=== PATIENT | female | born 1940 | race Caucasian/White ===

== ENCOUNTER 2017-10-06 11:10 | Inpatient (IN) | payer MEDICARE, SELFPAY ==
[2017-10-06] VITALS (7 sets, daily range): BP systolic 101–148; BP diastolic 54–75; PULSE 71–117; RESP 16–18; TEMP 36.1–37.1; O2SAT 95–99; BMI 20.3; BMI 24.6
--- NOTE | 2017-10-06 11:25 | CT_ITS ---
STUDY: CT BRAIN WITHOUT CONTRAST REASON FOR EXAM: Female, 77 years old. Headaches. History of schizophrenia. RADIATION DOSAGE (If Supplied By Facility): CTDIvol = ( 44.99 ) mGy, DLP = ( 779.24 ) mGycm TECHNIQUE: Transaxial CT imaging of the brain was performed without administration of intravenous contrast material. Individualized dose optimization techniques were used for this CT. COMPARISON: None. FINDINGS: Normal soft tissue structures. Normal calvarium. There is mild cerebral atrophy with widening of the extra-axial spaces and ventricular dilatation. Normal white matter tracts of the cerebral hemispheres. Normal basal ganglia and thalami. Normal brainstem. Normal cerebellum. There is no intracranial hemorrhage. There are no findings of an acute ischemic infarction. Atherosclerotic calcification of the cavernous portions of the internal carotid arteries bilaterally. Normal visualized paranasal sinuses. CT/Brain/Head without Contrast IMPRESSION: Chronic involutional changes of the brain. Electronically Signed: Mike Loza MD at 13:42 EDT Tel [phone], Service support ,
--- NOTE | 2017-10-06 11:25 | EKG12_ITS ---
Test Reason : Blood Pressure : / mmHG Vent. Rate : 112 BPM Atrial Rate : 112 BPM P-R Int : 140 ms QRS Dur : 078 ms QT Int : 310 ms P-R-T Axes : 044 -33 -04 degrees QTc Int : 423 ms Sinus tachycardia Left axis deviation Inferior infarct , age undetermined Abnormal ECG Confirmed by JONNY LEMUS ([id number]), fashion editor LYDIA CASSIDY ([id number]) on 10/09/2017 2:42:03 PM Referred By: STEPHAN Confirmed By:JONNY LEMUS
--- NOTE | 2017-10-06 11:27 | ED.VISSUMM ---
- ER Visit Summary Date of Service: 10/06/17 Chief Complaint: Weakness, confusion History of Present Illness: The patient is a 77 F who is been having weakness and confusion for the past 4 days. Family has been noting that she has been going downhill for the past couple of days. It feels like she has been getting more confused. She states that she feels weak and has been having trouble ambulating around the house. She has been having a decreased p.o. intake. She denies having any pain but does admit to some heartburn. She has been having a headache but admits to a history of migraine headaches. She has taken nothing for this at home. She does have some dysuria and a mild cough. No fevers at home. Physical Examination: Vital signs reviewed. HEENT exam unremarkable. Heart is tach and regular rhythm without murmurs. Lungs are clear to auscultation. Abdomen is soft and nontender. Extremities reveal no edema. Skin exam normal. Neurologic exam weakness in lower extremities bilaterally. Test Results: Sinus rhythm with a rate of 112. Chest x-ray and CAT scan revealed no acute findings. White blood cell count 15.1, sodium 130, potassium 3.2, chloride 93, lactate 1.3. Urinalysis does reveal 10-25 white blood cells with positive nitrites Emergency Department Course and Treatment: Patient was hydrated with normal saline and given Tylenol and Zofran for headache and nausea. At this point I feel that her symptoms are due to sepsis with urinary source. Patient was treated with IV Rocephin will be admitted to the hospital Treatment Plan: [] Disposition: Admit t Impression: Sepsis with urinary source This note was generated with [employer] dictation software. It may contain incorrect words, spelling, and punctuation that were not noted in review of the chart prior to signing ED Disposition - Plan for ED Patient: Chief Complaint: Confusion Referrals: Farshad Herrera MD [Primary Care Provider] -
--- NOTE | 2017-10-06 11:34 | RAD_ITS ---
STUDY: X-RAY CHEST REASON FOR EXAM: Female, 77 years old. Cough. TECHNIQUE: Single AP portable view of the chest. COMPARISON: None. FINDINGS: EKG electrode are seen. Scattered calcified granulomas. No acute infiltrate is seen. There is no demonstrated pleural abnormality. Normal size heart. Normal mediastinum and gerald. Normal visualized pulmonary arteries. There is atherosclerotic tortuosity of the aortic arch and descending thoracic aorta. There are diffuse degenerative changes of the visualized thoracic spine. Normal visualized ribs, clavicles, and shoulders. There is no demonstrated abnormality of the visualized soft tissue structures of the upper abdomen. RAD/Chest 1 View (Portable) IMPRESSION: No acute abnormality is present. Electronically Signed: Mike Loza MD at 12:14 EDT Tel [phone], Service support ,
[2017-10-06] MEDS: 0.9% Normal Saline 1,000 ML 999 ML IV (11:35)
[2017-10-06 11:51] LABS: Absolute Lymphocyte Count 1.49 X10^3/ul (0.83-4.51); Absolute Neutrophil Count 11.4 X10^3/uL (2.0-7.7); Basophil# 0.01 X10^3/uL; Basophil% 0.1 % (0-1); Hematocrit 37.6 % (37-47); Hemoglobin 12.9 g/dl (12.0-15.0); Lymphocyte # 1.49 X10^3/ul (4.0); Lymphocyte % 9.9 % (19-41); Mean Corp Hgb Conc 34.3 g/gl (32-36); Mean Corpuscular Hgb 32.3 pg (27.0-32.0); Mean Platelet Vol. 9.1 fl (6.2-12.0); Monocyte# 2.06 X10^3/uL; Monocyte% 13.7 % (0-10); Neutrophil # 11.44 X10^3/uL (2.7-7.7); Platelet Count 286 K/mm3 (150-450); RBC Distribution Width CV 11.3 % (11.6-14.6); RBC Distribution Width SD 38.7 fl (35.1-43.9); White Blood Count 15.1 K/mm3 (4.4-11.0)
[2017-10-06 11:53] LABS: Differential Indicated SCAN CRITERIA MET; POSITIVE COUNT NO; POSITIVE DIFFERENTIAL YES; POSITIVE MORPHOLOGY NO
[2017-10-06 12:05] LABS: BUN 23 mg/dL (7-18); Creatinine, Serum 0.84 mg/dL (0.55-1.02); Glucose 105 mg/dL (74-106)
[2017-10-06 12:06] LABS: ALB/GLOB Ratio 0.7 RATIO (0.9-2.4); AST(SGOT) 31 U/L (15-37); Alanine Aminotransfer ALT/SGPT 27 U/L (13-56); Albumin, Serum 3.1 g/dL (3.2-5.0); Alkaline Phosphatase 83 U/L (45-117); Anion Gap 11 (5-15); BUN/Creat Ratio 27.3 RATIO (10-20); Calcium,Total 9.1 mg/dL (8.5-10.1); Chloride 93 mmol/L (98-107); EST Glomerular Filtration Rate 70 mL/min (>60); Est Glom Filt Rate - Afr Amer 84 mL/min (>60); Estimated Creatinine Clearance 47.43 ml/min; Globulin 4.7 g/dL (2.2-4.2); Potassium 3.2 mmol/L (3.5-5.1); Protein, Total 7.8 g/dL (6.4-8.2); Sodium Level 130 mmol/L (136-145)
[2017-10-06 12:10] LABS: Anisocytosis 1+
[2017-10-06 12:16] LABS: Mucous, Urine 0 SEEN /hpf (<or=2+)
[2017-10-06 12:21] LABS: Color, Urine Yellow (Yellow); Glucose, Dipstick Normal (Normal); Ketone-Dipstick 50 mg/dl (Negative); Leukocyte Esterase-Dipstick 100 /ul (Negative); Nitrite-Dipstick Positive (Negative); Occult Blood-Urine 250 /ul (Negative); Protein-Dipstick 100 mg/dl (Negative); Specific Gravity, Urine 1.015 (1.002-1.030); Urine Bilirubin Dipstick Negative (Negative); Urine Clarity Sl. Cloudy (Clear); Urine Urobilinogen Normal (Normal)
[2017-10-06 12:28] LABS: Bacteria 2+ /hpf (None Seen); Red Blood Cells-Urine 25-50 SEEN /hpf (0-5); Squamous Epithelial Cells - UA 0-5 SEEN /hpf (5-10); White Blood Cells 10-25 SEEN /hpf (0-5)
--- NOTE | 2017-10-06 13:50 | ED.RN ---
Called lab for lactic acid results, it was reported to me that it wasn't run and they are running it now.
[2017-10-06 14:03] LABS: Lactic Acid 1.3 mmol/L (0.4-2.0)
[2017-10-06] MEDS: Acetaminophen 500 MG Tablet 1000 MG PO (14:31)
--- NOTE | 2017-10-06 15:14 | PCM.HP.STD ---
Problem List (1) UTI (urinary tract infection) Status: Acute (2) Metabolic encephalopathy Status: Acute (3) Hyponatremia Status: Acute (4) Hypokalemia Status: Acute (5) HTN (hypertension) Status: Chronic History of Present Illness Date of Admission: 10/06/17 Chief Complaint: weakness. confusion The patient is a 77 year old F who has been dealing with dysuria for the past several days. Had not been able to get into see her primary care provider as no earlier appointments were readily available. Patient was at home having headache as well as disc actually being noted to be more confused. 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 So there is concern by the family and patient was brought into the hospital. In the hospital patient was noted to be septic with a temp of 36.2, pulse rate of 117 and a white count of 15.1. Patient was found to have a urinary tract infection on her urinalysis and was ordered Rocephin. Patient did receive IV fluids in the emergency room as well. [] Past Medical History Past Medical History (Chronic Problems): Chronic Problems HTN (hypertension) (Chronic) Allergies No Known Allergies Allergy (Verified 10/06/17 11:10) Home Medications: Ambulatory Orders Medication Instructions Recorded Aspirin [Aspirin, Baby] 81 mg PO DAILY@0800 10/06/17 Cholecalciferol (VIT D3) [Vitamin 1,000 unit PO DAILY 10/06/17 D] Hydrochlorothiazide [Hctz] 25 mg PO DAILY 10/06/17 Metoprolol(XL)Succ [Toprol Xl 50 mg PO BID 10/06/17 (Beta Taras)] Potassium Chloride 20 meq PO BID 10/06/17 Psychiatric History: No pertinent psych hx Lives: Spouse/ Significant Other Smoking Status: Never smoker Tobacco Use: Non-smoker Alcohol: None Drugs: None - *Family History Paternal History Items: Heart Disease Review of Systems Constitutional: Reports: Anorexia. Denies: Chills, Fever Eyes: Denies: Blurred vision, Double vision HEENT: Denies: Head Aches, Sinus Congestion, Sinus Drainage Cardiovascular: Denies: Chest Pain, Palpitations Respiratory: Denies: Cough, Shortness of breath at rest, Sputum production Gastrointestinal: Reports: Nausea. Denies: Abdominal Pain, Vomiting Genitourinary: Denies: Dysuria Musculoskeletal: Denies: Arm Pain, Back Pain, Foot Pain, Hand Pain Skin: Denies: Rash, Wounds Neurological: Reports: - - Confusion. Denies: Balance problems, Blurred vision, Double vision Psychiatric: Denies: Anxiety, Depression Endocrine: Denies: Change in Body Habitus Hematologic/ Lymphatic: Denies: Easy Bruising, Easy Bleeding VTE Information - Inpt Only VTE Present on Admission: No VTE Pharm Prophylaxis ordered?: Yes Patient Problems: Active and Suspected Problems UTI (urinary tract infection) (Acute) Metabolic encephalopathy (Acute) Hyponatremia (Acute) Hypokalemia (Acute) - Physical Exam General: Alert, Cooperative, No apparent distress HEENT: Atraumatic, Normocephalic Neck: No Nodes, Thyroid Normal Size and Texture Lungs: Clear to auscultation, Normal air movement, No rhonchi, No wheeze Cardiovascular: Regular rate, Regular Rhythm, Normal S1, Normal S2, No murmurs Abdomen: Bowel Sounds Present, Soft, Non Tender, Non-Distended, No Hepato-splenomegaly Extremities: No clubbing, No cyanosis, No edema, No Calf Tenderness Skin: No rashes, No breakdown Musculoskeletal: No Tenderness to Palpation of Joints or Extremities, No Muscle Wasting Neurological: Neuro grossly intact, Sensory exam intact to light touch and pain, - - No clonus. Psych/Mental Status: Normal Affect, Appropriate, Alert and oriented to time, place, person, mood and affect Vital Signs Temp Pulse Resp BP Pulse Ox 37.1 C 106 H 18 124/68 H 98 10/06/17 14:18 10/06/17 14:18 10/06/17 14:18 10/06/17 14:18 10/06/17 14:18 Oxygen Delivery Method Room Air Weight: 54.431 kg Body Mass Index (BMI) 20.0 Laboratory Tests Past 24 Hrs 10/06/17 10/06/17 10/06/17 11:35 11:35 11:35 WBC 15.1 H RBC 4.00 L Hgb 12.9 Hct 37.6 MCV 94.0 MCH 32.3 H MCHC 34.3 RDW 11.3 L RDW Differential 38.7 Plt Count 286 MPV 9.1 Immature Gran % (Auto) 0.300 Neut % (Auto) 76.0 H Lymph % (Auto) 9.9 L [place] % (Auto) 13.7 H Eos % (Auto) 0.0 Baso % (Auto) 0.1 Absolute Neuts (auto) 11.4 H Absolute Lymphs (auto) 1.49 Total Counted Not Reportable Differential Comment Diff Path Review May foll Anisocytosis 1+ Sodium 130 L Potassium 3.2 L Chloride 93 L Carbon Dioxide 26.0 Anion Gap 11 BUN 23 H Creatinine 0.84 Estim Creat Clear Calc 47.43 Est GFR (MDRD) Af Amer 84 Est GFR (MDRD) Non-Af 70 BUN/Creatinine Ratio 27.3 H Glucose 105 Lactic Acid 1.3 Calcium 9.1 Total Bilirubin 0.50 AST 31 ALT 27 Alkaline Phosphatase 83 Troponin I < 0.02 Total Protein 7.8 Albumin 3.1 L Globulin 4.7 H Albumin/Globulin Ratio 0.7 L Urine Color Urine Clarity Urine pH Ur Specific [place] Urine Protein Urine Glucose (UA) Urine Ketones Urine Occult Blood Urine Nitrite Urine Bilirubin Urine Urobilinogen Ur Leukocyte Esterase Urine RBC Urine WBC Ur Squamous Epith Cells Urine Bacteria Urine Mucus 10/06/17 12:08 WBC RBC Hgb Hct MCV MCH MCHC RDW RDW Differential Plt Count MPV Immature Gran % (Auto) Neut % (Auto) Lymph % (Auto) [place] % (Auto) Eos % (Auto) Baso % (Auto) Absolute Neuts (auto) Absolute Lymphs (auto) Total Counted Differential Comment Diff Path Review Anisocytosis Sodium Potassium Chloride Carbon Dioxide Anion Gap BUN Creatinine Estim Creat Clear Calc Est GFR (MDRD) Af Amer Est GFR (MDRD) Non-Af BUN/Creatinine Ratio Glucose Lactic Acid Calcium Total Bilirubin AST ALT Alkaline Phosphatase Troponin I Total Protein Albumin Globulin Albumin/Globulin Ratio Urine Color Yellow Urine Clarity Sl. Cloudy Urine pH 5.0 Ur Specific [place] 1.015 Urine Protein 100 H Urine Glucose (UA) Normal Urine Ketones 50 H Urine Occult Blood 250 H Urine Nitrite Positive H Urine Bilirubin Negative Urine Urobilinogen Normal Ur Leukocyte Esterase 100 H Urine RBC 25-50 SEEN Urine WBC 10-25 SEEN Ur Squamous Epith Cells 0-5 SEEN Urine Bacteria 2+ Urine Mucus 0 SEEN Assessment/Plan Active and Suspected Problems UTI (urinary tract infection) (Acute) Metabolic encephalopathy (Acute) Hyponatremia (Acute) Hypokalemia (Acute) 1. Urinary tract infection Has been started on Rocephin and I will continue with that Follow-up urine cultures and adjust antibiotics accordingly. If patient is doing very well on the then could send the patient home with ciprofloxacin as is unlikely the patient would have multidrug-resistant organism given the infrequency of her infections. 2. Encephalopathy, metabolic Resolved at this time. Presumably related with the urinary tract infection No additional workup at this time 3. Hyponatremia No baseline lab work to compare to but the concern I would have is the patient's use of hydrochlorothiazide Patient received IV fluids and I am going to hold off on the patient's HCTZ for now If remains low or worse then would proceed with hyponatremia workup 4. Hypokalemia As above, felt to be related with HCTZ. Continue with the patient's potassium pills for now but patient is not going to be continued on HCTZ then patient would likely need to have the potassium tablets discontinued Check magnesium level in the morning 5. DVT prophylaxis with low molecular weight heparin 6. Advanced care planning: Discussed with the patient. Patient wishes to be full CODE STATUS at this time. This note was generated with [email or web address] dictation software. It may contain incorrect words, spelling, and punctuation that were not noted in checking the note before signing. Code Visit Inpatient E&M: 30106 Init Hosp L3
--- NOTE | 2017-10-06 15:24 | HP.PCM_ITS ---
Problem List (1) UTI (urinary tract infection) Status: Acute (2) Metabolic encephalopathy Status: Acute (3) Hyponatremia Status: Acute (4) Hypokalemia Status: Acute (5) HTN (hypertension) Status: Chronic History of Present Illness Date of Admission: 10/06/17 Chief Complaint: weakness. confusion The patient is a 77 year old F who has been dealing with dysuria for the past several days. Had not been able to get into see her primary care provider as no earlier appointments were readily available. Patient was at home having headache as well as disc actually being noted to be more confused. 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 So there is concern by the family and patient was brought into the hospital. In the hospital patient was noted to be septic with a temp of 36.2, pulse rate of 117 and a white count of 15.1. Patient was found to have a urinary tract infection on her urinalysis and was ordered Rocephin. Patient did receive IV fluids in the emergency room as well. [] Past Medical History Past Medical History (Chronic Problems): Chronic Problems HTN (hypertension) (Chronic) Allergies No Known Allergies Allergy (Verified 10/06/17 11:10) Home Medications: Ambulatory Orders Medication Instructions Recorded Aspirin [Aspirin, Baby] 81 mg PO DAILY@0800 10/06/17 Cholecalciferol (VIT D3) [Vitamin 1,000 unit PO DAILY 10/06/17 D] Hydrochlorothiazide [Hctz] 25 mg PO DAILY 10/06/17 Metoprolol(XL)Succ [Toprol Xl 50 mg PO BID 10/06/17 (Beta Taras)] Potassium Chloride 20 meq PO BID 10/06/17 Psychiatric History: No pertinent psych hx Lives: Spouse/ Significant Other Smoking Status: Never smoker Tobacco Use: Non-smoker Alcohol: None Drugs: None - *Family History Paternal History Items: Heart Disease Review of Systems Constitutional: Reports: Anorexia. Denies: Chills, Fever Eyes: Denies: Blurred vision, Double vision HEENT: Denies: Head Aches, Sinus Congestion, Sinus Drainage Cardiovascular: Denies: Chest Pain, Palpitations Respiratory: Denies: Cough, Shortness of breath at rest, Sputum production Gastrointestinal: Reports: Nausea. Denies: Abdominal Pain, Vomiting Genitourinary: Denies: Dysuria Musculoskeletal: Denies: Arm Pain, Back Pain, Foot Pain, Hand Pain Skin: Denies: Rash, Wounds Neurological: Reports: - - Confusion. Denies: Balance problems, Blurred vision , Double vision Psychiatric: Denies: Anxiety, Depression Endocrine: Denies: Change in Body Habitus Hematologic/ Lymphatic: Denies: Easy Bruising, Easy Bleeding VTE Information - Inpt Only VTE Present on Admission: No VTE Pharm Prophylaxis ordered?: Yes Patient Problems: Active and Suspected Problems UTI (urinary tract infection) (Acute) Metabolic encephalopathy (Acute) Hyponatremia (Acute) Hypokalemia (Acute) - Physical Exam General: Alert, Cooperative, No apparent distress HEENT: Atraumatic, Normocephalic Neck: No Nodes, Thyroid Normal Size and Texture Lungs: Clear to auscultation, Normal air movement, No rhonchi, No wheeze Cardiovascular: Regular rate, Regular Rhythm, Normal S1, Normal S2, No murmurs Abdomen: Bowel Sounds Present, Soft, Non Tender, Non-Distended, No Hepato- splenomegaly Extremities: No clubbing, No cyanosis, No edema, No Calf Tenderness Skin: No rashes, No breakdown Musculoskeletal: No Tenderness to Palpation of Joints or Extremities, No Muscle Wasting Neurological: Neuro grossly intact, Sensory exam intact to light touch and pain , - - No clonus. Psych/Mental Status: Normal Affect, Appropriate, Alert and oriented to time, place, person, mood and affect Vital Signs Temp Pulse Resp BP Pulse Ox 37.1 C 106 H 18 124/68 H 98 10/06/17 14:18 10/06/17 14:18 10/06/17 14:18 10/06/17 14:18 10/06/17 14:18 Oxygen Delivery Method Room Air Weight: 54.431 kg Body Mass Index (BMI) 20.0 Laboratory Tests Past 24 Hrs 10/06/17 10/06/17 10/06/17 11:35 11:35 11:35 WBC 15.1 H RBC 4.00 L Hgb 12.9 Hct 37.6 MCV 94.0 MCH 32.3 H MCHC 34.3 RDW 11.3 L RDW Differential 38.7 Plt Count 286 MPV 9.1 Immature Gran % (Auto) 0.300 Neut % (Auto) 76.0 H Lymph % (Auto) 9.9 L [place] % (Auto) 13.7 H Eos % (Auto) 0.0 Baso % (Auto) 0.1 Absolute Neuts (auto) 11.4 H Absolute Lymphs (auto) 1.49 Total Counted Not Reportable Differential Comment Diff Path Review May foll Anisocytosis 1+ Sodium 130 L Potassium 3.2 L Chloride 93 L Carbon Dioxide 26.0 Anion Gap 11 BUN 23 H Creatinine 0.84 Estim Creat Clear Calc 47.43 Est GFR (MDRD) Af Amer 84 Est GFR (MDRD) Non-Af 70 BUN/Creatinine Ratio 27.3 H Glucose 105 Lactic Acid 1.3 Calcium 9.1 Total Bilirubin 0.50 AST 31 ALT 27 Alkaline Phosphatase 83 Troponin I < 0.02 Total Protein 7.8 Albumin 3.1 L Globulin 4.7 H Albumin/Globulin Ratio 0.7 L Urine Color Urine Clarity Urine pH Ur Specific [place] Urine Protein Urine Glucose (UA) Urine Ketones Urine Occult Blood Urine Nitrite Urine Bilirubin Urine Urobilinogen Ur Leukocyte Esterase Urine RBC Urine WBC Ur Squamous Epith Cells Urine Bacteria Urine Mucus 10/06/17 12:08 WBC RBC Hgb Hct MCV MCH MCHC RDW RDW Differential Plt Count MPV Immature Gran % (Auto) Neut % (Auto) Lymph % (Auto) [place] % (Auto) Eos % (Auto) Baso % (Auto) Absolute Neuts (auto) Absolute Lymphs (auto) Total Counted Differential Comment Diff Path Review Anisocytosis Sodium Potassium Chloride Carbon Dioxide Anion Gap BUN Creatinine Estim Creat Clear Calc Est GFR (MDRD) Af Amer Est GFR (MDRD) Non-Af BUN/Creatinine Ratio Glucose Lactic Acid Calcium Total Bilirubin AST ALT Alkaline Phosphatase Troponin I Total Protein Albumin Globulin Albumin/Globulin Ratio Urine Color Yellow Urine Clarity Sl. Cloudy Urine pH 5.0 Ur Specific [place] 1.015 Urine Protein 100 H Urine Glucose (UA) Normal Urine Ketones 50 H Urine Occult Blood 250 H Urine Nitrite Positive H Urine Bilirubin Negative Urine Urobilinogen Normal Ur Leukocyte Esterase 100 H Urine RBC 25-50 SEEN Urine WBC 10-25 SEEN Ur Squamous Epith Cells 0-5 SEEN Urine Bacteria 2+ Urine Mucus 0 SEEN Assessment/Plan Active and Suspected Problems UTI (urinary tract infection) (Acute) Metabolic encephalopathy (Acute) Hyponatremia (Acute) Hypokalemia (Acute) 1. Urinary tract infection * Has been started on Rocephin and I will continue with that * Follow-up urine cultures and adjust antibiotics accordingly. * If patient is doing very well on the then could send the patient home with ciprofloxacin as is unlikely the patient would have multidrug-resistant organism given the infrequency of her infections. 2. Encephalopathy, metabolic * Resolved at this time. * Presumably related with the urinary tract infection * No additional workup at this time 3. Hyponatremia * No baseline lab work to compare to but the concern I would have is the patient 's use of hydrochlorothiazide * Patient received IV fluids and I am going to hold off on the patient's HCTZ for now * If remains low or worse then would proceed with hyponatremia workup 4. Hypokalemia * As above, felt to be related with HCTZ. * Continue with the patient's potassium pills for now but patient is not going to be continued on HCTZ then patient would likely need to have the potassium tablets discontinued * Check magnesium level in the morning 5. DVT prophylaxis with low molecular weight heparin 6. Advanced care planning: Discussed with the patient. Patient wishes to be full CODE STATUS at this time. This note was generated with [employer] dictation software. It may contain incorrect words, spelling, and punctuation that were not noted in checking the note before signing. Code Visit Inpatient E&M: 69590 Init Hosp L3
[2017-10-06] MEDS: 0.9% Normal Saline 1,000 ML 150 ML IV (16:25)
[2017-10-06] MEDS: Acetaminophen 325 MG Tablet 650 MG PO (22:09)
[2017-10-06] MEDS: Metoprolol Tartrate 50 MG Tablet PO (22:09)
[2017-10-07 02:43] VITALS: BP 126/64; PULSE 69; RESP 16; TEMP 37.6; O2SAT 97
[2017-10-07 06:02] LABS: Absolute Lymphocyte Count 0.95 X10^3/ul (0.83-4.51); Absolute Neutrophil Count 7.3 X10^3/uL (2.0-7.7); Basophil# 0.01 X10^3/uL; Basophil% 0.1 % (0-1); Hematocrit 33.8 % (37-47); Hemoglobin 11.3 g/dl (12.0-15.0); Lymphocyte # 0.95 X10^3/ul (4.0); Lymphocyte % 10.3 % (19-41); Mean Corp Hgb Conc 33.4 g/gl (32-36); Mean Corpuscular Hgb 31.3 pg (27.0-32.0); Mean Corpuscular Volume 93.6 fL (81-99); Mean Platelet Vol. 9.2 fl (6.2-12.0); Monocyte# 0.95 X10^3/uL; Monocyte% 10.3 % (0-10); Neutrophil # 7.28 X10^3/uL (2.7-7.7); Platelet Count 257 K/mm3 (150-450); RBC Distribution Width CV 11.8 % (11.6-14.6); RBC Distribution Width SD 40.4 fl (35.1-43.9); Red Blood Count 3.61 M/mm3 (4.2-5.4); White Blood Count 9.2 K/mm3 (4.4-11.0)
[2017-10-07 06:06] LABS: POSITIVE COUNT NO; POSITIVE DIFFERENTIAL NO; POSITIVE MORPHOLOGY NO
[2017-10-07 06:10] LABS: BUN 18 mg/dL (7-18); Creatinine, Serum 0.68 mg/dL (0.55-1.02); Estimated Creatinine Clearance 41.72 ml/min; Glucose 93 mg/dL (74-106)
[2017-10-07 06:11] LABS: Anion Gap 8 (5-15); BUN/Creat Ratio 26.5 RATIO (10-20); Calcium,Total 8.6 mg/dL (8.5-10.1); Chloride 98 mmol/L (98-107); EST Glomerular Filtration Rate 89 mL/min (>60); Est Glom Filt Rate - Afr Amer 108 mL/min (>60); Magnesium 1.8 mg/dL (1.6-2.6); Sodium Level 131 mmol/L (136-145)
[2017-10-07 08:43] VITALS: BP 125/51; PULSE 92; RESP 18; TEMP 37.1; O2SAT 97
[2017-10-07 09:04] VITALS: PULSE 88
[2017-10-07] MEDS: Aspirin 81 MG TAB.CHEW PO (09:04)
[2017-10-07] MEDS: 0.9% NaCl Peripheral Flush Adult/Peds IV ×2 (09:04→14:04)
[2017-10-07] MEDS: Metoprolol Tartrate 50 MG Tablet PO ×2 (09:04→21:09)
[2017-10-07] MEDS: Ceftriaxone 1 GM/50 ML BAG IV (09:04)
[2017-10-07] MEDS: Enoxaparin 40 MG/0.4 ML Syringe SC (09:05)
--- NOTE | 2017-10-07 10:09 | CASEMGMT ---
See RN CM Assessment. DC PLAN: Home -Pt denies any dc needs. Her daughters are able to assist. -pt's is on hospice. Daughters are able to assist, and pt has been able to manage care without difficulties. She is aware of respite care if needed. Alvina SANCHEZN RN ACM
--- NOTE | 2017-10-07 12:54 | PN_ITS ---
<Helena Soria - Last Filed: 10/07/17 12:54> Patient Problems: Active and Suspected Problems UTI (urinary tract infection) (Acute) Metabolic encephalopathy (Acute) Hyponatremia (Acute) Hypokalemia (Acute) Subjective: Patient seen and examined. Resting in chair in no acute distress. Alert and oriented. Denies fever, chills. Patient continues to feel weaker than normal. Denies other complaints. - Physical Exam General: Alert, Oriented x3, Cooperative, No apparent distress HEENT: Atraumatic, PERRLA, EOMI, Normocephalic Neck: Supple, No JVD, Negative Carotid Bruits Lungs: Clear to auscultation, Normal air movement Cardiovascular: Regular rate, Regular Rhythm, Normal S1, Normal S2, No murmurs Abdomen: Bowel Sounds Present, Soft, Non Tender, Non-Distended Extremities: No clubbing, No cyanosis, No edema, Capillary Refill Less than 3 Seconds Skin: No rashes, No breakdown Musculoskeletal: No Tenderness to Palpation of Joints or Extremities Neurological: Cranial nerves II-XII grossly intact, Neuro grossly intact Psych/Mental Status: Normal Affect, Appropriate Vital Signs Temp Pulse Resp BP Pulse Ox 98.8 F 88 18 125/51 H 97 10/07/17 08:43 10/07/17 09:04 10/07/17 08:43 10/07/17 08:43 10/07/17 08:43 Oxygen Delivery Method Room Air Weight: 67.132 kg Body Mass Index (BMI) 24.6 Intake and Output for Last 24 Hours 10/05/17 10/06/17 10/07/17 23:59 23:59 23:59 Intake Total 1246 / 1246 420 / 420 Output Total 150 / 150 200 / 200 Balance 1096 / 1096 220 / 220 Laboratory Tests Past 24 Hrs 10/07/17 10/07/17 05:40 05:40 WBC 9.2 RBC 3.61 L Hgb 11.3 L Hct 33.8 L MCV 93.6 MCH 31.3 MCHC 33.4 RDW 11.8 RDW Differential 40.4 Plt Count 257 MPV 9.2 Immature Gran % (Auto) 0.300 Neut % (Auto) 79.0 H Lymph % (Auto) 10.[address] [place] % (Auto) 10.3 H Eos % (Auto) 0.0 Baso % (Auto) 0.1 Absolute Neuts (auto) 7.3 Absolute Lymphs (auto) 0.95 Total Counted Not Reportable Sodium 131 L Potassium 3.0 L Chloride 98 Carbon Dioxide 25.0 Anion Gap 8 BUN 18 Creatinine 0.68 Estim Creat Clear Calc 41.72 Est GFR (MDRD) Af Amer 108 Est GFR (MDRD) Non-Af 89 BUN/Creatinine Ratio 26.5 H Glucose 93 Calcium 8.6 Magnesium 1.8 Medical Necessity - Tobacco Use Smoking Status: Never smoker Tobacco Use: Non-smoker Assessment/Plan Active and Suspected Problems UTI (urinary tract infection) (Acute) Metabolic encephalopathy (Acute) Hyponatremia (Acute) Hypokalemia (Acute) 1. Acute UTI-urinalysis positive for leukocytes and nitrates. Culture pending. Mental status improved. Leukocytosis resolved. Mild fever overnight. Continue IV Rocephin. Anticipate discharge home tomorrow if continued improvement. 2. Metabolic encephalopathy secondary to #1-improved. Continue treatment as noted above. PT/OT. 3. Hyponatremia-hold HCTZ. Slightly improved from admission. Begin gentle IV fluids with normal saline. Monitor BMP. 4. Hypokalemia-replaced orally. Monitor BMP. HCTZ on hold. 5. Hypertension-stable, continue home metoprolol regimen. Hydrochlorothiazide on hold. DVT prophylaxis-Lovenox subcu. This patient was seen by ROSSY Johnson under the supervision of Dr. Elizabeth. <Verónica Elizabeth E - Last Filed: 10/07/17 13:29> - Physical Exam Vital Signs Temp Pulse Resp BP Pulse Ox 98.8 F 88 18 125/51 H 97 10/07/17 08:43 10/07/17 09:04 10/07/17 08:43 10/07/17 08:43 10/07/17 08:43 Oxygen Delivery Method Room Air Weight: 148 lb Body Mass Index (BMI) 24.6 Intake and Output for Last 24 Hours 10/05/17 10/06/17 10/07/17 23:59 23:59 23:59 Intake Total 1246 / 1246 420 / 420 Output Total 150 / 150 200 / 200 Balance 1096 / 1096 220 / 220 Laboratory Tests Past 24 Hrs 10/07/17 10/07/17 05:40 05:40 WBC 9.2 RBC 3.61 L Hgb 11.3 L Hct 33.8 L MCV 93.6 MCH 31.3 MCHC 33.4 RDW 11.8 RDW Differential 40.4 Plt Count 257 MPV 9.2 Immature Gran % (Auto) 0.300 Neut % (Auto) 79.0 H Lymph % (Auto) 10.[address] [place] % (Auto) 10.3 H Eos % (Auto) 0.0 Baso % (Auto) 0.1 Absolute Neuts (auto) 7.3 Absolute Lymphs (auto) 0.95 Total Counted Not Reportable Sodium 131 L Potassium 3.0 L Chloride 98 Carbon Dioxide 25.0 Anion Gap 8 BUN 18 Creatinine 0.68 Estim Creat Clear Calc 41.72 Est GFR (MDRD) Af Amer 108 Est GFR (MDRD) Non-Af 89 BUN/Creatinine Ratio 26.5 H Glucose 93 Calcium 8.6 Magnesium 1.8 Assessment/Plan Hospitalist note: I am seeing this patient in conjunction with Helena Soria. I independently seen and examined the patient. Progress note above, laboratory data and imaging studies reviewed and I agree with the above treatment plan. Patient seen and examined. She was admitted because of weakness and confusion, found to acute cystitis complicated by metabolic encephalopathy as well as mild hyponatremia and hypokalemia. Today, patient is alert and oriented ?3. She denied any more symptoms except mild weakness. Denied chest pain or shortness of breath. Denied cough or sputum production. Denies fever chills. Her vital signs are stable. - Physical Exam General: Alert, Oriented x3, Cooperative, No apparent distress. HEENT: Atraumatic, PERRLA, EOMI. Neck: Supple, No JVD, Negative Carotid Bruits, Trachea Midline, Thyroid Normal. Lungs: Diminished breath sounds bilateral, otherwise clear, No rhonchi, No wheeze, No rales. Cardiovascular: Regular rate, Regular Rhythm, Normal S1, Normal S2, PMI Normal. Abdomen: Bowel Sounds Present, Soft, Non Tender, Non-Distended, No Hepato- splenomegaly. Extremities: No clubbing, No cyanosis, No edema Skin: No rashes, No breakdown Neurological: Neuro grossly intact Vital Signs are stable. Assessment and plan: #1 acute cystitis: On IV Rocephin, have been afebrile, vital signs are stable, white blood cell count is back to normal. Urine cultures growing gram-negative rods, plan to continue same treatment. #2 metabolic encephalopathy, secondary to above, resolving. CT scan brain without acute findings. #3 hyponatremia/hypokalemia: Secondary to HCTZ on IV fluids with normal saline as well as oral potassium supplement. Plan to repeat BMP tomorrow morning. #4 other chronic medical problems: Stable, continue current medications as above. This note was generated with [employer] dictation software. It may contain incorrect words, spelling, and punctuation that were not noted in checking the note before signing. Code Visit Inpatient E&M: 13171 Subs Hosp L2
--- NOTE | 2017-10-07 13:51 | NURSING ---
Patient's granddaughter Katharine in at this time- her phone number is [phone]. States patient has been having sharp pain above left eye on occasion. granddaughter states she has a history of migranes and that she will not take any medication for it at home and will be miserable for a few days and then ususally come out of it. She states that patient was in severe pain again with this migrane and stopped drinking and eating which probably led her to the hospital with UTI. States migrane went away but these sharp pains above left eye remain and come and go.
[2017-10-07 13:57] LABS: Pathologist Review Reviewed
[2017-10-07 13:58] VITALS: BP 130/55; PULSE 73; RESP 18; TEMP 38.3; O2SAT 95
[2017-10-07] MEDS: Acetaminophen 325 MG Tablet 650 MG PO (14:04)
[2017-10-07] MEDS: 0.9% Normal Saline 1,000 ML 100 ML IV (14:04)
--- NOTE | 2017-10-07 15:16 | CHAPLAIN ---
Type of Pastoral Visit _x__ Initial Visit ___ Follow-up Visit ___ On-call Visit ___ General Patient Visit ___ Spiritual Assessment ___ Family Conference ___ Bereavement ___ Rapid Response ___ Code Blue ___ Other (describe below) Pastoral Care Referral From _x__ Patient ___ Family ___ Nurse ___ Physician ___ Hospice Massage Therapist ___ Electrical Tester Battery ___ Other (describe below) Sacrament/Intervention _x__ Active listening ___ Anointing ___ Confucianism ___ Bereavement ___ Communion ___ Sharon exploration ___ ___ Life review _x__ Prayer ___ Reconciliation ___ Sacrament of Sick ___ Supportive presence ___ Wedding ___ Other (describe below) Pastoral Comments
[2017-10-07 21:09] VITALS: BP 134/58; PULSE 68; RESP 16; TEMP 37.2; O2SAT 95
[2017-10-07] MEDS: Pantoprazole Sodium 40 MG Tablet PO (21:09)
[2017-10-08] MEDS: 0.9% Normal Saline 1,000 ML 100 ML IV (00:14)
[2017-10-08 03:00] VITALS: BP 123/61; PULSE 71; RESP 16; TEMP 37.2; O2SAT 94
[2017-10-08 06:26] LABS: Anion Gap 8 (5-15); BUN 11 mg/dL (7-18); Chloride 105 mmol/L (98-107); EST Glomerular Filtration Rate 127 mL/min (>60); Est Glom Filt Rate - Afr Amer 153 mL/min (>60); Estimated Creatinine Clearance 41.72 ml/min; Glucose 88 mg/dL (74-106); Potassium 3.3 mmol/L (3.5-5.1); Sodium Level 137 mmol/L (136-145)
--- NOTE | 2017-10-08 09:50 | DCINST_ITS ---
- Discharge Diagnoses Current Active Problems: Current Active and Chronic Problems UTI (urinary tract infection) (Acute) Metabolic encephalopathy (Acute) Hyponatremia (Acute) Hypokalemia (Acute) HTN (hypertension) (Chronic) You will use the following diet at home:: No restrictions Discharge Activity: Return to Normal Activity Call your doctor if you observe: Shortness of breath, Dizziness, Fainting spells , Chest pain, Increased palpitations (irregular heartbeat) Allergies/Adverse Reactions: Allergies No Known Allergies Allergy (Verified 10/06/17 11:10) Medications to take at Discharge Aspirin [Aspirin, Baby] 81 mg PO DAILY@0800 10/06/17 Cholecalciferol (VIT D3) [Vitamin D3] 1,000 unit PO DAILY 10/06/17 Hydrochlorothiazide [Hctz] 25 mg PO DAILY 10/06/17 Metoprolol Tartrate [Lopressor (beta taras)] 50 mg PO BID 10/06/17 Metoprolol(XL)Succ [Toprol Xl (Beta Taras)] 50 mg PO BID 10/06/17 Potassium Chloride 20 meq PO BID 10/06/17 Cephalexin [Keflex] 500 mg PO Q12 #12 cap 10/08/17 The following prescriptions were given: Cephalexin [Keflex] 500 mg PO Q12 #12 cap Primary Care Physician: Farshad Herrera MD [Primary Care Provider] - Please follow up with your Primary Care Physician in: 1 Week Proposed Discharge Date: 10/08/17
--- NOTE | 2017-10-08 09:51 | PCM.DC.SUM ---
<Helena Soria - Last Filed: 10/08/17 09:58> Discharge Date and Diagnosis Date of Admission: 10/06/17 Date of Discharge: 10/08/17 - Primary Discharge Diagnosis Active and Suspected Problems 1. Acute E. coli cystitis 2. Metabolic encephalopathy secondary to #1 3. Hyponatremia 4. Hypokalemia - Secondary Discharge Diagnosis Chronic Problems HTN (hypertension) (Chronic) Hospital Course and Treatment Imaging Results: Diagnostic Data Brain CT 10/06/17 11:25 IMPRESSION: Chronic involutional changes of the brain. Electronically Signed: Mike Loza MD at 13:42 EDT Tel [phone], Service support , Chest X-Ray 10/06/17 11:34 IMPRESSION: No acute abnormality is present. Electronically Signed: Mike Loza MD at 12:14 EDT Tel [phone], Service support , Operations: None Procedures: None Summary of Care Provided: Patient is a 77-year-old female admitted 10/06/2017 due to weakness, confusion and dysuria and was found to have acute UTI. Her past medical history includes hypertension. 1. Acute E. coli UTI-urinalysis positive for leukocytes and nitrates. Culture showed E. coli. Leukocytosis resolved. Continues to have low-grade fever. No further confusion. Patient will be discharged on Keflex 500 mg twice daily for 6 days. She received IV Rocephin during admission. 2. Metabolic encephalopathy secondary to #1-resolved. No further confusion noted. Physical therapy did not recommend further skilled therapy. Patient is stable for discharge home. 3. Hyponatremia-suspected secondary to HCTZ. Resolved. Patient will continue HCTZ at discharge with further monitoring of BMP by PCP. 4. Hypokalemia-suspected secondary to HCTZ. Continue home potassium supplementation. Continue monitoring by PCP. 5. Hypertension-stable, continue home regimen. General: Alert, Oriented x3, Cooperative, No apparent distress HEENT: Atraumatic, PERRLA, EOMI, Normocephalic Neck: Supple, No JVD, Negative Carotid Bruits Lungs: Clear to auscultation, Normal air movement Cardiovascular: Regular rate, Regular Rhythm, Normal S1, Normal S2, No murmurs Abdomen: Bowel Sounds Present, Soft, Non Tender, Non-Distended Extremities: No clubbing, No cyanosis, No edema, Capillary Refill Less than 3 Seconds Skin: No rashes, No breakdown Musculoskeletal: No Tenderness to Palpation of Joints or Extremities Neurological: Cranial nerves II-XII grossly intact, Neuro grossly intact Psych/Mental Status: Normal Affect, Appropriate Patient seen and examined prior to discharge. Physical assessment as noted above. Patient is stable for discharge home with recommendations as noted above. This patient was seen by ROSSY Johnson under the supervision of Dr. Elizabeth. Discharge Diet: No Restrictions Discharge Activity: Return to Normal Activity Call your doctor if you observe: Shortness of breath, Dizziness, Fainting spells, Chest pain, Increased palpitations (irregular heartbeat) Home Medications: Medications to take at Discharge Aspirin [Aspirin, Baby] 81 mg PO DAILY@0800 10/06/17 Cholecalciferol (VIT D3) [Vitamin D3] 1,000 unit PO DAILY 10/06/17 Hydrochlorothiazide [Hctz] 25 mg PO DAILY 10/06/17 Metoprolol Tartrate [Lopressor (beta taras)] 50 mg PO BID 10/06/17 Metoprolol(XL)Succ [Toprol Xl (Beta Taras)] 50 mg PO BID 10/06/17 Potassium Chloride 20 meq PO BID 10/06/17 Cephalexin [Keflex] 500 mg PO Q12 #12 cap 10/08/17 Following Prescrptions Were Given to Patient: Cephalexin [Keflex] 500 mg PO Q12 #12 cap Primary Care Physician: Farshad Herrera MD [Primary Care Provider] - Please follow up with your Primary Care Physician in: 1 Week Disposition: Home Minutes spent on discharge:: 35 Patient Condition:: Stable Medical Necessity - Tobacco Use Smoking Status: Never smoker Tobacco Use: Non-smoker Meaningful Use Info Meaningful Use Diagnoses (Choose all that apply): None applicable <Verónica Elizabeth E - Last Filed: 10/08/17 15:41> Discharge Date and Diagnosis - Secondary Discharge Diagnosis Chronic Problems HTN (hypertension) (Chronic) Hospital Course and Treatment Summary of Care Provided: Hospitalist note: Discharge summary above reviewed as well as physical examination and I agree with the above discharge and treatment plan. Patient was admitted for weakness and confusion, found to have E. coli acute cystitis and metabolic encephalopathy secondary to acute infection. Also, she was found to have mild hyponatremia and hypokalemia secondary to HCTZ. She was treated with IV Rocephin and IV fluids as well as potassium replacement. Her urine culture revealed E. coli which was pansensitive. Patient did well and her confusion cleared. She has been afebrile overnight and her other vital signs are stable. Patient discharged home in a stable medical condition, discharged on Keflex 500 p.o. twice daily, continued on her other chronic home medications, discharged on potassium supplement, recommended follow-up with PCP in 1 week. . Minutes spent on discharge:: 26 Code Visit Inpatient E&M: [id number] Disch Hosp
[2017-10-08] MEDS: Aspirin 81 MG TAB.CHEW PO (09:55)
[2017-10-08] MEDS: Enoxaparin 40 MG/0.4 ML Syringe SC (09:56)
--- NOTE | 2017-10-08 09:58 | DS.PCM_ITS ---
<Helena Soria - Last Filed: 10/08/17 09:58> Discharge Date and Diagnosis Date of Admission: 10/06/17 Date of Discharge: 10/08/17 - Primary Discharge Diagnosis Active and Suspected Problems 1. Acute E. coli cystitis 2. Metabolic encephalopathy secondary to #1 3. Hyponatremia 4. Hypokalemia - Secondary Discharge Diagnosis Chronic Problems HTN (hypertension) (Chronic) Hospital Course and Treatment Imaging Results: Diagnostic Data Brain CT 10/06/17 11:25 IMPRESSION: Chronic involutional changes of the brain. Electronically Signed: Mike Loza MD at 13:42 EDT Tel [phone], Service support , Chest X-Ray 10/06/17 11:34 IMPRESSION: No acute abnormality is present. Electronically Signed: Mike Loza MD at 12:14 EDT Tel [phone], Service support , Operations: None Procedures: None Summary of Care Provided: Patient is a 77-year-old female admitted 10/06/2017 due to weakness, confusion and dysuria and was found to have acute UTI. Her past medical history includes hypertension. 1. Acute E. coli UTI-urinalysis positive for leukocytes and nitrates. Culture showed E. coli. Leukocytosis resolved. Continues to have low-grade fever. No further confusion. Patient will be discharged on Keflex 500 mg twice daily for 6 days. She received IV Rocephin during admission. 2. Metabolic encephalopathy secondary to #1-resolved. No further confusion noted. Physical therapy did not recommend further skilled therapy. Patient is stable for discharge home. 3. Hyponatremia-suspected secondary to HCTZ. Resolved. Patient will continue HCTZ at discharge with further monitoring of BMP by PCP. 4. Hypokalemia-suspected secondary to HCTZ. Continue home potassium supplementation. Continue monitoring by PCP. 5. Hypertension-stable, continue home regimen. General: Alert, Oriented x3, Cooperative, No apparent distress HEENT: Atraumatic, PERRLA, EOMI, Normocephalic Neck: Supple, No JVD, Negative Carotid Bruits Lungs: Clear to auscultation, Normal air movement Cardiovascular: Regular rate, Regular Rhythm, Normal S1, Normal S2, No murmurs Abdomen: Bowel Sounds Present, Soft, Non Tender, Non-Distended Extremities: No clubbing, No cyanosis, No edema, Capillary Refill Less than 3 Seconds Skin: No rashes, No breakdown Musculoskeletal: No Tenderness to Palpation of Joints or Extremities Neurological: Cranial nerves II-XII grossly intact, Neuro grossly intact Psych/Mental Status: Normal Affect, Appropriate Patient seen and examined prior to discharge. Physical assessment as noted above. Patient is stable for discharge home with recommendations as noted above. This patient was seen by ROSSY Johnson under the supervision of Dr. Elizabeth. Discharge Diet: No Restrictions Discharge Activity: Return to Normal Activity Call your doctor if you observe: Shortness of breath, Dizziness, Fainting spells , Chest pain, Increased palpitations (irregular heartbeat) Home Medications: Medications to take at Discharge Aspirin [Aspirin, Baby] 81 mg PO DAILY@0800 10/06/17 Cholecalciferol (VIT D3) [Vitamin D3] 1,000 unit PO DAILY 10/06/17 Hydrochlorothiazide [Hctz] 25 mg PO DAILY 10/06/17 Metoprolol Tartrate [Lopressor (beta taras)] 50 mg PO BID 10/06/17 Metoprolol(XL)Succ [Toprol Xl (Beta Taras)] 50 mg PO BID 10/06/17 Potassium Chloride 20 meq PO BID 10/06/17 Cephalexin [Keflex] 500 mg PO Q12 #12 cap 10/08/17 Following Prescrptions Were Given to Patient: Cephalexin [Keflex] 500 mg PO Q12 #12 cap Primary Care Physician: Farshad Herrera MD [Primary Care Provider] - Please follow up with your Primary Care Physician in: 1 Week Disposition: Home Minutes spent on discharge:: 35 Patient Condition:: Stable Medical Necessity - Tobacco Use Smoking Status: Never smoker Tobacco Use: Non-smoker Meaningful Use Info Meaningful Use Diagnoses (Choose all that apply): None applicable <Verónica Elizabeth E - Last Filed: 10/08/17 15:41> Discharge Date and Diagnosis - Secondary Discharge Diagnosis Chronic Problems HTN (hypertension) (Chronic) Hospital Course and Treatment Summary of Care Provided: Hospitalist note: Discharge summary above reviewed as well as physical examination and I agree with the above discharge and treatment plan. Patient was admitted for weakness and confusion, found to have E. coli acute cystitis and metabolic encephalopathy secondary to acute infection. Also, she was found to have mild hyponatremia and hypokalemia secondary to HCTZ. She was treated with IV Rocephin and IV fluids as well as potassium replacement. Her urine culture revealed E. coli which was pansensitive. Patient did well and her confusion cleared. She has been afebrile overnight and her other vital signs are stable. Patient discharged home in a stable medical condition, discharged on Keflex 500 p.o. twice daily, continued on her other chronic home medications, discharged on potassium supplement, recommended follow-up with PCP in 1 week. . Minutes spent on discharge:: 26 Code Visit Inpatient E&M: 55141 Disch Hosp
[2017-10-08] MEDS: Ceftriaxone 1 GM/50 ML BAG IV (09:59)
[2017-10-08] MEDS: Pantoprazole Sodium 40 MG Tablet PO (09:59)
[2017-10-08 10:09] VITALS: PULSE 68
[2017-10-08] MEDS: Metoprolol Tartrate 50 MG Tablet PO (10:09)
--- NOTE | 2017-10-08 10:09 | CASEMGMT ---
No dc needs identified. Pt plans to return home, denies concerns. Alvina SANCHEZN RN ACM
[2017-10-08 10:15] VITALS: BP 131/80; PULSE 68; RESP 16; TEMP 36.9; O2SAT 98
== END 2017-10-08 11:00 | disposition home or self-care (01) | DRG 689 ==
LOC: ED 12:03 → MS2 15:40
PROVIDERS: Nurse Practitioner Family; Emergency Provider Emergency Medicine; Family Provider Family Medicine; PCP Family Medicine; Visit Provider Hospitalist
DX: N30.00 Acute cystitis without hematuria (principal); G93.41 Metabolic encephalopathy; E87.1 Hypo-osmolality and hyponatremia; B96.20 Unspecified Escherichia coli [E. coli] as the cause of diseases classified elsewhere; E87.6 Hypokalemia; I10 Essential (primary) hypertension; Z79.899 Other long term (current) drug therapy; T50.2X5A Adverse effect of carbonic-anhydrase inhibitors, benzothiadiazides and other diuretics, initial encounter
CPT/HCPCS: 36415; 70450; 71045; 80048; 80053; 81001; 83605; 83735; 84484; 85025; 87077; 87086; 87088; 87186; 93005; 97162; 97165; 99283; J7030; A4216

== ENCOUNTER → 2018-12-07 | Outpatient (CLI) | payer MEDICARE, SELFPAY ==
--- NOTE | 2018-12-07 09:43 | BI_ITS ---
MAMMOGRAPHY - BILATERAL SCREENING REASON FOR EXAM: Female, 78 years old. Routine annual screening examination. PERTINENT HISTORY: Grandmother with breast cancer. TECHNIQUE: Digital bilateral breast sapphire (3D mammographic acquisition) in the CC and MLO projections. 2-D mediolateral oblique (MLO) and craniocaudad (CC) views of both breasts were obtained. CAD: Full Field Digital Mammography with Computer Added Detection was performed. COMPARISON: Comparison is made with prior study dated October 10, 2016 and January 30, 2015. FINDINGS: Breast Composition: The breasts are almost entirely fatty. There are no dominant masses or suspicious calcifications. No other significant abnormalities are identified. There has been no significant change since the prior study. BI/SCREENING MAMM (CAD), BILAT IMPRESSION: Stable bilateral screening mammogram. Yearly follow-up mammogram recommended. (A) ASSESSMENT CATEGORY: BIRADS Category 1: Negative. A letter regarding these results will be sent to the patient by the facility within 30 days. Approximately 10% of breast cancers are not detected by mammography. A normal mammogram should not delay biopsy of a clinically suspicious abnormality. [id number] Electronically Signed: Mike Loza, at 12:26 EDT , Service support ,
== END | disposition home or self-care (01) ==
LOC: OPBI 09:41
PROVIDERS: Family Provider Family Medicine; PCP Family Medicine; Referring Provider Obstetrics & Gynecology; Visit Provider Obstetrics & Gynecology
DX: Z12.31 Encounter for screening mammogram for malignant neoplasm of breast (principal)
CPT/HCPCS: 77063; 77067

== ENCOUNTER → 2019-02-15 | Outpatient (CLI) | payer MEDICARE, SELFPAY ==
[2017-10-06 16:15] VITALS: BMI 24.6
[2019-02-17 14:46] LABS: HPV Reflexed? NOT INDICATED
== END | disposition home or self-care (01) ==
LOC: LABSPEC 10:17
PROVIDERS: Visit Provider Obstetrics & Gynecology
DX: Z12.4 Encounter for screening for malignant neoplasm of cervix (principal)
CPT/HCPCS: 88175; G0145

== ENCOUNTER → 2020-01-17 08:22 | Outpatient (CLI) | payer MEDICARE, SELFPAY ==
--- NOTE | 2020-01-17 08:27 | BI_ITS ---
MAMMOGRAPHY - BILATERAL SCREENING REASON FOR EXAM: Female, 79 years old. Routine annual screening examination. PERTINENT HISTORY: Grandmother with breast cancer. TECHNIQUE: Digital bilateral breast zuly (3D mammographic acquisition) in the CC and MLO projections. 2-D mediolateral oblique (MLO) and craniocaudad (CC) views of both breasts were obtained. CAD: Full Field Digital Mammography with Computer Added Detection was performed. COMPARISON: Comparison is made with prior study dated December 07, 2018 and October 10, 2016. FINDINGS: Breast Composition: The breasts are almost entirely fatty. There are no dominant masses or suspicious calcifications. No other significant abnormalities are identified. There has been no significant change since the prior study. BI/SCREEN MAMM (CAD) W/ZULY BILAT IMPRESSION: Stable bilateral screening mammogram. Yearly follow-up mammogram recommended. (A) ASSESSMENT CATEGORY: BIRADS Category 1: Negative. A letter regarding these results will be sent to the patient by the facility within 30 days. Approximately 10% of breast cancers are not detected by mammography. A normal mammogram should not delay biopsy of a clinically suspicious abnormality. [id number] Electronically Signed: Mike Loza, at 11:36 EDT , Service support ,
== END ==
PROVIDERS: PCP Physician Assistant; Referring Provider Physician Assistant; Visit Provider Physician Assistant
DX: Z12.31 Encounter for screening mammogram for malignant neoplasm of breast (principal); Z80.3 Family history of malignant neoplasm of breast
CPT/HCPCS: 77063; 77067

== ENCOUNTER → 2021-01-25 08:29 | Outpatient (CLI) | payer MEDICARE, SELFPAY ==
--- NOTE | 2021-01-25 08:33 | BI_ITS ---
MAMMOGRAPHY - BILATERAL SCREENING REASON FOR EXAM: Female, 80 years old. Routine annual screening examination. PERTINENT HISTORY: Grandmother with breast cancer. TECHNIQUE: Digital bilateral breast zuly (3D mammographic acquisition) in the CC and MLO projections. 2-D mediolateral oblique (MLO) and craniocaudad (CC) views of both breasts were obtained. CAD: Full Field Digital Mammography with Computer Added Detection was performed. COMPARISON: Comparison is made with prior examination dated 01/17/2020 and 12/07/2018. FINDINGS: Breast Composition: The breasts are almost entirely fatty. There are no dominant masses or suspicious calcifications. Stable small benign-appearing bilateral axillary nodes. No other significant abnormalities are identified. There has been no significant change since the prior study. BI/SCRN MAMM (CAD)W/ZULY BILAT IMPRESSION: Stable bilateral screening mammogram. Yearly follow-up mammogram recommended. (A) ASSESSMENT CATEGORY: BIRADS Category 2: Benign. A letter regarding these results will be sent to the patient by the facility within 30 days. Approximately 10% of breast cancers are not detected by mammography. A normal mammogram should not delay biopsy of a clinically suspicious abnormality. [id number] Electronically Signed: Mike Loza MD at 9:55 EDT , Service support ,
== END ==
PROVIDERS: PCP Physician Assistant; Referring Provider Family Medicine; Visit Provider Family Medicine
DX: Z12.31 Encounter for screening mammogram for malignant neoplasm of breast (principal)
CPT/HCPCS: 77063; 77067

== ENCOUNTER → 2022-02-06 | Outpatient (CLI) | payer MEDICARE, SELFPAY ==
--- NOTE | 2022-02-06 13:13 | BI_ITS ---
MAMMOGRAPHY - BILATERAL SCREENING REASON FOR EXAM: Female, 81 years old. Routine annual screening examination. PERTINENT HISTORY: Grandmother with breast cancer. TECHNIQUE: Digital bilateral breast zuly (3D mammographic acquisition) in the CC and MLO projections. 2-D mediolateral oblique (MLO) and craniocaudad (CC) views of both breasts were obtained. CAD: Full Field Digital Mammography with Computer Added Detection was performed. COMPARISON: Comparison is made with prior examination dated 01/25/2021 and 01/17/2020. FINDINGS: Breast Composition: The breasts are almost entirely fatty. There are no dominant masses or suspicious calcifications. Stable small benign-appearing bilateral axillary lymph nodes. No other significant abnormalities are identified. There has been no significant change since the prior study. BI/SCRN MAMM (CAD)W/ZULY BILAT IMPRESSION: Stable bilateral screening mammogram. Yearly follow-up mammogram recommended. (A) ASSESSMENT CATEGORY: BIRADS Category 2: Benign. A letter regarding these results will be sent to the patient by the facility within 30 days. Approximately 10% of breast cancers are not detected by mammography. A normal mammogram should not delay biopsy of a clinically suspicious abnormality. [id number] Electronically Signed: Mike Loza MD at 14:06 EDT ,
== END | disposition home or self-care (01) ==
LOC: OPBI 13:10
PROVIDERS: PCP Family Medicine; Referring Provider Family Medicine; Visit Provider Family Medicine
DX: Z12.31 Encounter for screening mammogram for malignant neoplasm of breast (principal)
CPT/HCPCS: 77063; 77067

== ENCOUNTER 2025-03-08 11:29 | Inpatient (IN) | payer MEDICARE, SELFPAY ==
--- NOTE | 2025-03-04 11:20 | RAD_ITS ---
PROCEDURE: CHEST PA AND LATERAL 03/04/2025 REASON FOR EXAM: PRE OP TECHNIQUE: CHEST PA AND LATERAL COMPARISON: None FINDINGS: Heart size and configuration are within normal limits. Pulmonary vasculature and hilar structures are unremarkable. Trachea is midline. Arteriosclerotic vascular disease of the aorta is noted. There are several 2-4 mm nodules identified in both lungs. These appear to be calcified and most likely represent granulomas. No prior films however are available for comparison and therefore other benign and malignant neoplastic processes should be considered. There is no atelectasis, consolidation, effusion, pneumonic infiltrate or pneumothorax is seen. Diffuse osteopenia of the bony thorax is noted. There is increased kyphotic curvature of the thoracic spine. Degenerative changes of the thoracic spine are noted. Degenerative disc disease is seen involving several of the thoracic disc. RAD/Chest PA and Lateral IMPRESSION: The nodules in both lungs most likely represent granulomas however follow-up im aging is recommended to further evaluate these findings, if clinically warranted. Reading Location: [id number]
[2025-03-04 12:33] LABS: Hematocrit 40.7 % (37-47); Hemoglobin 13.5 g/dL (12.0-15.0); Immature Granulocytes Count 0.080 X10^3/uL (0.0-0.0); Mean Corp Hgb Conc 33.2 g/dL (32-36); Mean Corpuscular Volume 93.8 fL (81-99); Mean Platelet Vol. 9.4 fl (6.2-12.0); NRBC Flagged by Analyzer 0 % (0-5); Platelet Count 366 K/mm3 (150-450); RBC Distribution Width CV 12.6 % (11.6-14.6); RBC Distribution Width SD 43.3 fl (35.1-43.9); Red Blood Count 4.34 M/mm3 (4.2-5.4); White Blood Count 12.2 K/mm3 (4.4-11.0)
[2025-03-04 13:26] LABS: Magnesium 2.4 mg/dL (1.5-2.2)
[2025-03-04 13:39] LABS: Albumin, Serum 4.1 g/dL (3.4-4.8); Anion Gap 13 (5-15); BUN 23 mg/dL (4-19); BUN/Creat Ratio 30.5 RATIO (10-20); Calcium,Total 10.0 mg/dL (7.6-11.0); Carbon Dioxide 24.5 mmol/L (21.0-32.0); Chloride 97 mmol/L (98-108); Glucose 90 mg/dL (70-99); Potassium 5.0 mmol/L (3.3-5.1)
--- NOTE | 2025-03-07 15:12 | PAT.ANESEVAL ---
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 When Was Last Pacemaker Check QUESTION #4 FULL TEXT: You/Your Family Experience fever (hyperthermia) with Anesthesia Last Oral Intake Last Oral intake: Last Oral Intake NPO since Meds taken in AM with sips of water? Meds patient instructed to take am of surgery PONV PONV - risk control manager: PONV - risk control manager Female Yes 03/07/25 12:38 HX of Motion Sickness No 03/07/25 12:38 HX of N/V After Surgery No 03/07/25 12:38 Non-Smoker Yes 03/07/25 12:38 Duration of Surgery greater Yes 03/07/25 12:38 than 60 minutes Number of Risk Factors 3 03/07/25 12:38 PONV Score Moderate Risk 03/07/25 12:38 Respiratory Assessment Respiratory Assessment - risk control manager: Respiratory Tract Infection Hx - risk control manager Hx Respiratory Tract Infection No 03/07/25 12:38 STOP Sleep Apnea STOP Sleep Apnea - risk control manager: STOP Sleep Apnea - risk control manager Hx Hypertension Yes: PER PT, CONTROLLED ON 03/07/25 12:38 MEDS Hx Sleep Apnea No 03/07/25 12:38 CPAP BIPAP Do you snore loudly (louder No 03/07/25 12:38 than talking or can be heard Do you often feel tired/ No 03/07/25 12:38 fatigued/ sleepy during daytime? Has anyone observed you stop No 03/07/25 12:38 breathing during sleep? STOP Results Negative 03/07/25 12:38 QUESTION #5 FULL TEXT : Do you snore loudly (louder than talking or can be heard through closed doors)? 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 Specify any problems Hx of Preganancy in last 3 No 03/07/25 12:38 Months Nurse Filling Out Transfusion [email or web address] 03/07/25 12:38 & Questions: Date: 03/07/25 03/07/25 12:38 Time: 12:40 03/07/25 12:38 Patient unable to answer at this time (ie. confused, unrespo /Reproduction History /Reproductive History - risk control manager: /Reproductive Hx- risk control manager Hx Now No 03/07/25 12:38 Gestational Age (in weeks): EDC: Hx Hx Para Hx Section SAB No 03/07/25 12:38 Active Medications Active Medications: Current Medications Generic Name Dose Route Start Last Admin Trade Name Freq PRN Reason Stop Dose Admin Cefazolin Sodium 2 gm/ Sodium 110 mls @ 200 mls/hr 03/08/25 11:00 Chloride IV 03/08/25 11:32 INTRAOP ONE [facility] Medical History (Updated 03/07/25 @ 12:47 by Caren Valencia) Wears glasses Wears partial dentures History of steroid therapy Walker as ambulation aid Arthritis Migraine headache Non-smoker Hypertension Home Medications ?Medication ?Instructions ?Recorded ?Last Taken ?Type aspirin 81 mg chewable tablet 81 mg PO DAILY@0800 HEART 10/06/17 10/06/17 History cholecalciferol (vitamin D3) 25 1,000 unit PO DAILY SUPPLEMENT 10/06/17 10/06/17 History mcg (1,000 unit) tablet (Vitamin D3) metoprolol tartrate 50 mg tablet 50 mg PO BID BLOOD PRESSURE 10/06/17 Unknown History spironolactone 25 mg tablet 25 mg PO DAILY 03/07/25 Unknown History Allergy/AdvReac Type Severity Reaction Status Date / Time No Known Allergies Allergy Verified 03/07/25 12:33 Surgical History (Updated 03/07/25 @ 12:37 by Caren Valencia) History of colonoscopy History of cholecystectomy Social History Smoking Status: Never smoker Audit: Pertinent Findings Pertinent Findings EKG Perinent findings: March 04, 2025. Normal sinus rhythm with sinus arrhythmia. Left axis deviation. Minimal voltage criteria for LVH. Cannot rule out inferior infarct, age undetermined. Possible anterior infarct, age undetermined. Current Visit Impressions Current Visit Impressions: Clinical Impression(s) from Imaging Studies Chest X-Ray 03/04/25 11:20 IMPRESSION: The nodules in both lungs most likely represent granulomas however follow-up imaging is recommended to further evaluate these findings, if clinically warranted. Reading Location: [id number] Recommendation Anesthesia Recommendation Anesthesia recommendation: OPTIMIZED for anesthesia
[2025-03-08] VITALS (14 sets, daily range): BP systolic 100–136; BP diastolic 50–83; PULSE 54–70; RESP 16; TEMP 36.1–37.4; O2SAT 95–100; BMI 22.1
[2025-03-08] MEDS: Lactated Ringers 1,000 ML 15 ML IV (09:57)
--- NOTE | 2025-03-08 10:30 | PRE.ANES_ITS ---
ASA Classification* ASA Classification ASA Classification: 3 Assessment & Plan Anesthesia* Anesthesia Assessment Anesthesia Assessment: Discussed sedation and/or anesthesia options, risks, benefits, and alternatives with patient/parents/legal guardian/POA. Questions invited. The patient/parents/legal guardian/POA seems to understand and agrees to proceed with anesthesia plan. Reviewed the physical assessment, medical history, allergy history and patient home medications list prior to surgery/procedure/anesthetic and documented any changes. Performed airway and anesthesia risk assessments. Anesthesia Type Anesthesia Type: Spinal (We discussed that if a spinal could not be obtained that a general anesthesia would be the back up option.) History Source History Obtained from:: Patient and Chart Anesthesia Focused Assessment* Temperature: 99.3 F Pulse Rate: 62 Blood Pressure: 136/76 Respiratory Rate: 16 Pulse Ox: 100 Oxygen Delivery Method: Room Air Airway Assessment Mouth opens: 2 cm Mallampati Score: III Teeth Condition: Intact Labs Anesthesia Preop lab: CBC WBC 12.2 K/mm3 (4.4-11.0) H 03/04/25 11: 5 RBC 4.34 M/mm3 (4.2-5.4) 03/04/25 11:34 03/04/25 Hgb 13.5 g/dL (12.0-15.0) 03/04/25 11:34 03/04/25 Hct 40.7 % (37-47) 03/04/25 11:34 03/04/25 Plt Count 366 K/mm3 (150-450) 03/04/25 11:34 03/04/25 CHEMISTRY Potassium 5.0 mmol/L (3.3-5.1) 03/04/25 11:03/04/25 Sodium 134 mmol/L (133-145) 03/04/25 11:03/04/25 Magnesium 2.4 mg/dL (1.5-2.2) H 03/04/25 11:03/04/25 BUN 23 mg/dL (4-19) H 03/04/25 11:03/04/25 Creatinine 0.76 mg/dL (0.70-1.20) 03/04/25 11:03/04/25 Glucose 90 mg/dL (70-99) 03/04/25 11:03/04/25 COAG Pre-Assessment Diagnosis/Proposed Procedure Planned Operative Procedure(s): (L) LEFT HIP HEMIARTHROPLASTY Anesthesia History 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 When Was Last Pacemaker Check QUESTION #4 FULL TEXT: You/Your Family Experience fever (hyperthermia) with Anesthesia Last Oral Intake Last Oral intake: Last Oral Intake NPO since 08:30 03/08/25 09:31 Meds taken in AM with sips of Yes 03/08/25 09:31 water? Meds patient instructed to take am of surgery PONV PONV - field pipe lines supervisor: PONV - field pipe lines supervisor Female Yes 03/07/25 12:38 HX of Motion Sickness No 03/07/25 12:38 HX of N/V After Surgery No 03/07/25 12:38 Non-Smoker Yes 03/07/25 12:38 Duration of Surgery greater Yes 03/07/25 12:38 than 60 minutes Number of Risk Factors 3 03/07/25 12:38 PONV Score Moderate Risk 03/07/25 12:38 Height & Weight Height & Weight: Anesthesia: Height & Weight Height 5 ft 4 in 03/08/25 09:31 Weight: 58.4 kg 03/08/25 09:31 Body Mass Index (BMI) 22.1 03/08/25 09:31 Respiratory Assessment Respiratory Assessment - field pipe lines supervisor: Respiratory Tract Infection Hx - field pipe lines supervisor Hx Respiratory Tract Infection No 03/07/25 12:38 STOP Sleep Apnea STOP Sleep Apnea - field pipe lines supervisor: STOP Sleep Apnea - field pipe lines supervisor Hx Hypertension Yes: PER PT, CONTROLLED ON 03/07/25 12:38 MEDS Hx Sleep Apnea No 03/07/25 12:38 CPAP BIPAP Do you snore loudly (louder No 03/07/25 12:38 than talking or can be heard Do you often feel tired/ No 03/07/25 12:38 fatigued/ sleepy during daytime? Has anyone observed you stop No 03/07/25 12:38 breathing during sleep? STOP Results Negative 03/07/25 12:38 QUESTION #5 FULL TEXT : Do you snore loudly (louder than talking or can be heard through closed doors)? 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 Specify any problems Hx of Preganancy in last 3 No 03/07/25 12:38 Months Nurse Filling Out Transfusion [email or web address] 03/07/25 12:38 & Questions: Date: 03/07/25 03/07/25 12:38 Time: 12:40 03/07/25 12:38 Patient unable to answer at this time (ie. confused, unrespo /Reproduction History /Reproductive History - field pipe lines supervisor: /Reproductive Hx- field pipe lines supervisor Hx Now No 03/07/25 12:38 Gestational Age (in weeks): EDC: Hx Hx Para Hx Section SAB No 03/07/25 12:38 Active Medications Active Medications: Current Medications Generic Name Dose Route Start Last Admin Trade Name Freq PRN Reason Stop Dose Admin Cefazolin Sodium 2 gm/ Sodium 110 mls @ 200 mls/hr 03/08/25 11:00 Chloride IV 03/08/25 11:32 INTRAOP ONE Lactated Ringer's 1,000 mls @ 15 mls/hr 03/08/25 09:15 03/08/25 09:57 IV 15 mls/hr .Q48H ERICA Administration PFSH Medical History (Updated 03/07/25 @ 12:47 by Caren Valencia) Wears glasses Wears partial dentures History of steroid therapy Walker as ambulation aid Arthritis Migraine headache Non-smoker Hypertension Home Medications ?Medication ?Instructions ?Recorded ?Last Taken ?Type aspirin 81 mg chewable tablet 81 mg PO DAILY@0800 HEAR T 10/06/17 10/06/17 History cholecalciferol (vitamin D3) 25 1,000 unit PO DAILY KOVACS PPLEMENT 10/06/17 10/06/17 History mcg (1,000 unit) tablet (Vitamin D3) metoprolol tartrate 50 mg tablet 50 mg PO BID BLOOD FL ESSURE 10/06/17 03/08/25 08:30 History spironolactone 25 mg tablet 25 mg PO DAILY 03/07/25 Un known History Allergy/AdvReac Type Severity Reaction Status Date / Time No Known Allergies Allergy Verified 03/07/25 12:33 Surgical History (Updated 03/07/25 @ 12:37 by Caren Valencia) History of colonoscopy History of cholecystectomy Social History Smoking Status: Never smoker Review of Systems (Anesthesia) ROS Narrative System reviewed and no additional complaints, except as documented. Constitutional Constitutional: Denies change in weight, fever(s), snoring or stops breathing during sleep Cardiovascular Cardiovascular: Denies chest pain, dyspnea, hypertension or palpitations Respiratory/Chest Respiratory/Chest: Denies chest congestion, cough or wheezing Neurologic Neurologic: Denies abnormal movements, abnormal speech, behavior changes, confusion, restless legs or seizures Physical Exam Const alert and oriented x3 Orientation / Consciousness: awake Resp normal respiratory effort and normal air movement Cardio regular rate and regular rhythm
[2025-03-08] MEDS: Cefazolin 1 GM/5 ML Vial 2 GM IV (11:23)
[2025-03-08] MEDS: fentaNYL 100 MCG/2 ML Ampul 25 MCG IV (11:24)
--- NOTE | 2025-03-08 11:25 | RAD_ITS ---
PROCEDURE: HIP MIN 2 VIEWS (PORTABLE) 03/08/2025 REASON FOR EXAM: POST OP TECHNIQUE: Two-view left hip to include a low centered AP pelvis Laterality: Left COMPARISON: None provided. RAD/Hip Min 2 Views (Portable) IMPRESSION: Generalized osteopenia is present. Mild right hip joint degenerative changes are seen. A proximal left femoral bipolar endoprosthesis has been placed, also with proxi mal femoral cerclage wire. Overlying skin alessandra are seen. No complication is noted. No fracture site is seen. Reading Location: [place] [id number]
[2025-03-08] MEDS: Lidocaine 1% (5 ml sdv) 5 ML Vial IV (11:38)
[2025-03-08] MEDS: TRANEXAMIC ACID 1,000 MG/10 ML ML 2000 MG IV (13:03)
--- NOTE | 2025-03-08 13:05 | PCM.OPRPT ---
Problems Associated Problem List Diagnoses (1) Displaced fracture of left femoral neck: Operative Report (Standard) Operative Information Date of Procedure: 03/08/25 Pre-Operative Diagnosis: Left hip femoral neck fracture Post-Operative Diagnosis: Same Surgery/Procedure Performed: Left hip cemented hemiarthroplasty anesthesia tech: Yes Clinical Documentation Nurse: Jeana Lee Tasks completed by nutrition assistant: Closing, Implanting device and Altering tissue Additional information assistant?: No Type of Anesthesia: Spinal RN Documented Start/Stop Times: Operation Date: 03/08/25 11:00 Case Time Into Pre-Op 03/08/25 09:03 Out of Pre-Op 03/08/25 11:17 Anesthesia Start 03/08/25 11:23 Into Room 03/08/25 11:23 Procedure Start 03/08/25 11:52 Procedure Start Time: 11:52 Procedure Stop Time: 13:25 Select all DRAINS/GRAFTS/IMPLANTS that apply: Implanted device Implanted device details: Stephen Accolade C size 5, 127 degree neck angle, L fit V40 femoral head -3 offset 26 mm outer diameter, universal bipolar component 43 mm outer diameter 26 mm inner diameter, [employer] beaded cable and sleep set 2 mm, medium distal spacer 13 mm, cement restrictor, 2 batches antibiotic bone cement Special Medications: Ancef 2 g, Tranexamic acid 1 g IV preop Estimated Blood Loss: 200 Fluids Replaced: 1200 Specimen collected: No Description of surgery: Preoperative diagnosis: Left hip displaced femoral neck fracture Postoperative diagnosis: Same Operation: Left hip cemented hemiarthroplasty Surgeon: Dr. Manuel Bettencourt MD Electrician Supervisor Airplane: Jeana Lee PA-C Anesthesia: spinal Anesthesiologist; Dr. Cardenas Special medications: IV [Ancef] 2 g, IV Tranexamic acid IV x 1 Indications for surgery : Patient is a (84 ) -year-old that fell previously fracturing the involved hip. Patient persisted having left hip pain. Nonoperative treatment was discussed. Surgical internal fixation with screws was discussed. Possibility of cemented hemiarthroplasty was discussed. Patient and her granddaughter wish to proceed with cemented hemiarthroplasty. appropriate informed consent was obtained and signed. Appropriate medical workup was performed preoperatively and patient was deemed safe for surgery by the anesthesia department acute care certified nursing assistant, PETRA was utilized throughout the entire procedure. They were vital in helping with patient positioning, holding of retractors, exposing the tissues adequately for safe completion of the procedure including cutting of the bone, helping probate judge appropriate alignment and sizing of the components, implantation of the components, cable placement, as well as wound closure, bandage application, and safe patient transfer. Without surgical sales representative, physician information assistant, surgical time would have been significantly increased, and surgical outcome would have been less optimal. Operative findings: Patient had displaced comminuted femoral neck fracture. We used a [place] cemented stem as documented above. this reproduced there anatomy nicely. Clinically good leg lengths were noted. Good hip stability through range of motion with no undue pistoning. Standard wound closure in layers, followed by alessandra, followed by Mepilex dressing Details of procedure: Patient was taken to the operating room and transferred to the operating table. Given appropriate anesthetic agent by that department. Patient was then rolled into a lateral decubitus position with the involved painful hip up in the air. Appropriate timeouts had been performed. Hip had been appropriately marked with my initials. Padded anterior and posterior position was utilized. Axillary roll placed. ANATOLY hose and SCDs on the nonoperative limb utilized throughout the procedure. Operative lower extremity was prepped padded and draped in the usual orthopedic sterile fashion for the procedure. I injected the pain relieving solution in the standard sterile technique of the soft tissues of the hip carefully. Incision was made curving over the tip of the greater trochanter posteriorly. Full thickness skin flaps are raised down on the fascia brad. Fascia brad was opened in length with our incision. Charnley self-retaining hip retractor was carefully placed by the surgeon. Leg was appropriately rotated by the information assistant. Retractor was used to lift the abductors anteriorly to visualize the piriformis tendon and external rotators. Piriformis tendon and external rotators released off the greater trochanter with the Bovie. Tagging suture was placed in each of these separately. We then split the tissue superior to the piriformis tendon through capsule and onto the pelvis. Acetabular labrum was preserved. Retractors were carefully placed around the femoral neck. Displaced unstable femoral neck fracture identified. cutting guide was utilized to map out the proposed cut approximately 1 fingerbreadth above the lesser trochanter. This femoral neck cut was carried out with a saw. Fractured femoral head removed from the acetabulum and measured and inspected. Appropriate trial was utilized. A proximal femoral elevator utilized. We used a sharp awl entering down inside the bone of the proximal femur. Utilized the [employer] cutting osteotome the proximal lateral greater trochanteric region. The fragment removed. Broaching was then done from the smallest broach, upto the appropriate size. While reducing the hip a anterior femoral neck fracture was identified that did not extend to the lesser trochanter. It was decided to place a cerclage wire based on her age and possibility the fracture line could extend. This was done under standard technique. Good stability was confirmed. We then trialed the construct with a standard neck length and appropriate sized femoral head. We were happy with the construct. Good stability to flexion, rotation. At this point trials removed. 2 full batches of bone cement were mixed. 2 sponges were placed in the acetabulum we prepared the canal with brushing. Cement restrictor was placed down to the appropriate depth. It was thoroughly irrigated clean and dry. When the cement was as the appropriate texture, we pressurized cement down in the femoral canal. The appropriate size stem then hammered into the proximal femur and seated down to a similar position as the trial had. Excess bone cement removed. Stem was held still while cement fully hardened. Pain relieving solution was injected while this was occurring. The cement was fully hardened, sponges were removed from the acetabulum. We now again trialed and appropriate neck length decided upon. It was then opened. Now impacted the appropriate sized femoral head, neck construct onto the clean dried trunion. Was noted to be stable. Hip was inspected, and joint was reduced for a final time. Good hip stability and leg lengths noted. This was then irrigated with saline and cleaned. Next the remainder of the pain relieving solution was injected carefully throughout the soft tissues of the hip joint. Closure was carried out with a combination of #1 Vicryl repairing the hip capsule as well as piriformis tendon and external rotators to bone, running #2 strata fix in the fascia brad, followed by mid layer #1 Vicryl with #1 strata fix running. Next running 0 strata fix, followed by skin alessandra, Xeroform, Mepilex dressing. We placed ANATOLY hose and SCD on the operative leg. Patient awoken from the anesthetic and transferred back to room bed in recovery room in satisfactory condition. Patient will be admitted to the hospital. Hospitalist service will continue to manage the medical issues. Hopeful discharge to home or ECF in 2-3 days. This note was generated with [id number] dictation software. It may contain incorrect words, spelling, and punctuation that were not noted in checking the note before signing. Surgical Findings: Left femoral neck fracture, no obvious signs of healing Complications Complications: Yes Complication Details: Nondisplaced fracture line involving the femoral neck anteriorly while reducing the hip for the first time as noted above. Treated with cerclage wire prophylactically. Admit VTE Documentation VTE Present on Admission: No VTE Mechan Device Prophylaxis: SCD's and Thigh High ANATOLY Hose VTE Pharm Prophylaxis ordered?: Yes
--- NOTE | 2025-03-08 13:44 | PCM.POST.ANE ---
Anesthesia: Postop Eval I Current Vital Signs Temperature: 97.2 F Pulse Rate: 62 Blood Pressure: 132/76 Respiratory Rate: 16 Pulse Ox: 99 Oxygen Delivery Method: Room Air Assessment Airway patent: Yes Spontaneous unlabored respirations: Yes Mental status: Awake and Calm nausea: No Vomiting: No Anesthesia Complication: No Fluid Hydration Crystalloid volume administer (ml): 1,200 Total IV fluid infused: 1,200 Progress Note Anesthesia document: Postop Eval 1 completed: Yes
[2025-03-08] MEDS: Lactated Ringers 1,000 ML 125 ML IV (14:08)
--- NOTE | 2025-03-08 14:47 | POSTOPAN2_ITS ---
Anesthesia Postop Eval I Sum Postop Eval Completion status Anesthesia document: Postop Eval 1 completed: Yes Anesthesia Postop Eval I Summary Anesthesia Postop Eval I Summary: Anesthesia Postop Eval I: Assessment Summary Airway patent Yes 03/08/25 13:44 [email or web address] Spontaneous unlabored Yes 03/08/25 13:44 CRIMINAL [email or web address] respirations Mental status Awake,Calm 03/08/25 13:44 [email or web address] nausea No 03/08/25 13:44 CRIMINAL [email or web address] Vomiting No 03/08/25 13:44 CRIMINAL [email or web address] Anesthesia Postop Eval I: Fluid Summary Crystalloid volume administer 1,200 03/08/25 13:44 CRIMINAL [email or web address] (ml) Colloids volume administered ( ml) Blood Product volume administered (ml) Total IV fluid infused 1,200 03/08/25 13:44 CRIMINAL [email or web address] Anesthesia Postop Eval I: Summary Notes Anesthesia Complication No 03/08/25 13:44 CRIMINAL [email or web address] Anesthesia Complication Comment: Post-operative progress note Anesthesia: Postop Eval II Evaluation Mental status: Awake Pain Level: 0 nausea: No Vomiting: No
--- NOTE | 2025-03-08 14:47 | PCM.POSTANE2 ---
Anesthesia Postop Eval I Sum Postop Eval Completion status Anesthesia document: Postop Eval 1 completed: Yes Anesthesia Postop Eval I Summary Anesthesia Postop Eval I Summary: Anesthesia Postop Eval I: Assessment Summary Airway patent Yes 03/08/25 13:44 [email or web address] Spontaneous unlabored Yes 03/08/25 13:44 [email or web address] [email or web address] respirations Mental status Awake,Calm 03/08/25 13:44 [email or web address] [email or web address] nausea No 03/08/25 13:44 [email or web address] Vomiting No 03/08/25 13:44 [email or web address] Anesthesia Postop Eval I: Fluid Summary Crystalloid volume administer 1,200 03/08/25 13:44 [email or web address] (ml) Colloids volume administered ( ml) Blood Product volume administered (ml) Total IV fluid infused 1,200 03/08/25 13:44 [email or web address] Anesthesia Postop Eval I: Summary Notes Anesthesia Complication No 03/08/25 13:44 [email or web address] Anesthesia Complication Comment: Post-operative progress note Anesthesia: Postop Eval II Evaluation Mental status: Awake Pain Level: 0 nausea: No Vomiting: No
--- NOTE | 2025-03-08 15:42 | CON.PCM.HO_ITS ---
Assessment & Plan Assessment/Plan (1) Displaced fracture of left femoral neck: PLAN: Plan Patient is an 84-year-old female who presented to [facility] on 03/08/2025 for planned left hip replacement for recent left hip fracture. Medicine consulted postoperatively for medical management. 1. Recent left hip fracture ? Orthopedic surgery primary. S/p left hip cemented hemiarthroplasty with Dr. Bettencourt on 03/08. Tolerated procedure well, no intraoperative complications noted. Postoperative pain control, DVT prophylaxis and further management per orthopedics. Follow-up morning labs. PT/OT/case management consulted. 2. Hypertension, mild sinus bradycardia ? Normotensive in the 120s systolic with mild sinus bradycardia with heart rate in the mid 50s. Okay to resume home Lopressor and spironolactone with hold parameters. DVT prophylaxis: Baby aspirin twice daily per orthopedics Total clinical time spent by myself addressing the patient's medical issues, reviewing all the data, and collaborating with patient's care team: 35 minutes. HPI Consult Data Date of Consult: 03/08/25 HPI Narrative Reason for Consultation: Postoperative medical management HPI Narrative: BECKI COOPER, is a 84 F who presented to [facility] on 03/08/2025 for planned orthopedic procedure. Medicine consulted postoperatively for medical management. Patient initially suffered a mechanical fall about 4 weeks ago with resultant left hip pain. She decided to manage it at home initially but the pain became steadily worse, so she was evaluated by orthopedics in the office late last week and found to have a left femoral neck fracture on x-ray. S/p left hip cemented hemiarthroplasty with Dr. Bettencourt this morning. Tolerated procedure well, no intraoperative complications noted. I saw the patient at bedside this afternoon. Patient was sitting back comfortably in bed, conversing normally, in no acute distress. Denied any left hip pain currently but did note she feels fairly numb in her hip down to her toes. Denies any other acute concerns currently. [facility] Medical History (Updated 03/08/25 @ 13:[address] Manuel Bettencourt MD) Wears glasses Wears partial dentures History of steroid therapy Walker as ambulation aid Arthritis Migraine headache Non-smoker Hypertension Home Medications ?Medication ?Instructions ?Recorded ?Last Taken ?Type aspirin 81 mg chewable tablet 81 mg PO DAILY@0800 HEAR T 10/06/17 10/06/17 History cholecalciferol (vitamin D3) 25 1,000 unit PO DAILY KOVACS PPLEMENT 10/06/17 10/06/17 History mcg (1,000 unit) tablet (Vitamin D3) metoprolol tartrate 50 mg tablet 50 mg PO BID BLOOD VA ESSURE 10/06/17 03/08/25 08:30 History spironolactone 25 mg tablet 25 mg PO DAILY 03/07/25 Un known History Allergy/AdvReac Type Severity Reaction Status Date / Time No Known Allergies Allergy Verified 03/07/25 12:33 Surgical History (Updated 03/07/25 @ 12:37 by Caren Valencia) History of colonoscopy History of cholecystectomy Social History Smoking Status: Never smoker ROS Constitutional Constitutional: Denies chills, fatigue, fever(s) or weakness Eyes Eyes: Denies change in vision Cardiovascular Cardiovascular: Denies chest pain Respiratory/Chest Respiratory/Chest: Denies shortness of breath at rest Gastrointestinal Gastrointestinal: Denies abdominal pain Musculoskeletal Musculoskeletal: Denies arthralgias or myalgias Physical Exam Const alert, oriented x3, no apparent distress and average body habitus Constitutional Narrative: Pleasant elderly female, sitting back comfortably in bed, conversing normally, in no acute distress. General Appearance: cooperative and comfortable HEENT normocephalic, head/scalp atraumatic, hearing grossly normal bilaterally, nasal mucous membranes and turbinates normal and moist oral mucous membranes Eyes PERRL, EOMs intact bilaterally and conjunctivae normal Neck full ROM Chest inspection of chest normal Resp normal respiratory effort, normal air movement, no use of accessory muscles and clear to auscultation bilaterally Cardio regular rate, regular rhythm, no murmurs and peripheral pulses 2+ throughout GI normal to inspection, nondistended, normoactive bowel sounds, soft to palpation, non-tender and non-distended Back/Spine normal ROM Extremity Extremity Narrative: Left hip with surgical dressing and ice pack in place. No gross abnormalities on exam. Skin no rashes or lesions noted Psych mental status grossly normal Lab / Micro Data 03/04/25 11:34 03/04/25 11:33 Labs: Laboratory Results - last 24 hr 03/08/25 09:54: Blood Type A POSITIVE, Antibody Screen NEGATIVE Imaging Radiology Impression Hip X-Ray 03/08/25 11:25 IMPRESSION: Generalized osteopenia is present. Mild right hip joint degenerative changes are seen. A proximal left femoral bipolar endoprosthesis has been placed, also with proximal femoral cerclage wire. Overlying skin alessandra are seen. No complication is noted. No fracture site is seen. Reading Location: [facility] Charges/Coding Visit Charges Inpatient E&M: 10459 Subs Hosp L2
[2025-03-08] MEDS: Ensure Surgery 237 ML LIQUID PO (16:50)
[2025-03-08] MEDS: 0.9% Saline Lock 10 ML Syringe IV (18:17)
[2025-03-08] MEDS: Cefazolin 1 GM/50 ML BAG IV (18:17)
[2025-03-08] MEDS: Senna/Docusate Sodium 1 Tablet 2 TABLET PO (21:13)
[2025-03-09 02:31] VITALS: BP 123/63; PULSE 52; RESP 18; TEMP 36.3; O2SAT 97
[2025-03-09] MEDS: Cefazolin 1 GM/50 ML BAG IV (02:45)
[2025-03-09 06:04] VITALS: BP 111/54; PULSE 56; RESP 18; TEMP 36.3; O2SAT 99
[2025-03-09 06:40] LABS: Hematocrit 31.5 % (37-47); Hemoglobin 10.9 g/dL (12.0-15.0); Immature Granulocytes Count 0.130 X10^3/uL (0.0-0.0); Mean Corp Hgb Conc 34.6 g/dL (32-36); Mean Corpuscular Volume 92.9 fL (81-99); Mean Platelet Vol. 9.4 fl (6.2-12.0); NRBC Flagged by Analyzer 0 % (0-5); Platelet Count 263 K/mm3 (150-450); RBC Distribution Width CV 12.3 % (11.6-14.6); RBC Distribution Width SD 41.9 fl (35.1-43.9); Red Blood Count 3.39 M/mm3 (4.2-5.4); White Blood Count 17.8 K/mm3 (4.4-11.0)
[2025-03-09 07:13] LABS: Anion Gap 13 (5-15); BUN 22 mg/dL (4-19); BUN/Creat Ratio 40.3 RATIO (10-20); Calcium,Total 9.1 mg/dL (7.6-11.0); Carbon Dioxide 20.7 mmol/L (21.0-32.0); Chloride 98 mmol/L (98-108); Estimated Creatinine Clearance 44.40 ml/min (50-250); Glucose 108 mg/dL (70-99); Potassium 4.6 mmol/L (3.3-5.1)
--- NOTE | 2025-03-09 07:39 | PCM.PN.HOSP ---
Reason for Visit Chief Complaint: Status post left hip replacement Subjective Subjective Patient is an 84-year-old lady admitted by orthopedic surgery for a planned left hip replacement for recent left hip fracture. Hospitalist service was consulted to assist with management of patient medical comorbidities Objective Data Objective Data Vital Signs: Vital Signs Temp Pulse Resp BP Pulse Ox O2 Del Method 97.4 F L 56 L 18 111/54 L 99 Room Air 03/09/25 06:04 03/09/25 06:04 03/09/25 06:04 03/09/25 06:04 03/09/25 06:04 03/09/25 06:04 Oxygen Delivery Method Room Air Weight: 58.4 kg Body Mass Index (BMI) 22.1 Intake & Output: Intake and Output for Last 24 Hours 03/07/25 03/08/25 03/09/25 23:59 23:59 23:59 Intake Total 1506.67 / 1906.67 650 / 650 Output Total 200 / 200 Balance 1306.67 / 1706.67 650 / 650 Lab / Micro Data 03/09/25 05:39 03/09/25 05:39 Labs: Laboratory Results - last 24 hr 03/08/25 09:54: Blood Type A POSITIVE, Antibody Screen NEGATIVE 03/09/25 05:39: WBC 17.8 H, RBC 3.39 L, Hgb 10.9 L, Hct 31.5 L, MCV 92.9, MCH 32.2 H, MCHC 34.6, RDW Std Deviation 41.9, RDW Coeff of Murray 12.3, Plt Count 263, MPV 9.4, Immature Gran % (Auto) 0.700, Neut % (Auto) 79.8 H, Lymph % (Auto) 11.5 L, [place] % (Auto) 7.9, Eos % (Auto) 0.0, Baso % (Auto) 0.1, Absolute Neuts (auto) 14.2 H, Absolute Lymphs (auto) 2.05, Nucleated RBC % 0, Sodium 132 L, Potassium 4.6, Chloride 98, Carbon Dioxide 20.7 L, Anion Gap 13, BUN 22 H, Creatinine 0.55 L, Estim Creat Clear Calc 44.40 L, Est GFR (MDRD) Non-Af 90, BUN/Creatinine Ratio 40.3 H, Glucose 108 H, Calcium 9.1 Micro: Microbiology 03/04/25 11:38 Nasal Secretion MRSA (PCR) - Final Radiography Diagnostic Testing: Radiology Impression Hip X-Ray 03/08/25 11:25 IMPRESSION: Generalized osteopenia is present. Mild right hip joint degenerative changes are seen. A proximal left femoral bipolar endoprosthesis has been placed, also with proximal femoral cerclage wire. Overlying skin alessandra are seen. No complication is noted. No fracture site is seen. Reading Location: [place] [address] Physical Exam Narrative GENERAL: cooperative HEENT: Atraumatic; normocephalic EYES; Anicteric, Normal Conjunctiva NECK; supple, normal thyroid, RESPIRATORY: Diminished to auscultation CARDIOVASCULAR: Regular S1 S2, GI: soft, normoactive bowel sounds, : No Renal angle tenderness; EXTREMITIES: No edema, no clubbing, MUSCULOSKELETAL: no muscle wasting NEURO: Awake; no lateralizing signs. SKIN: No Rash PSYCH; Flat affect Assessment & Plan Assessment/Plan (1) Displaced fracture of left femoral neck: PLAN: Plan Patient is an 84-year-old lady admitted by orthopedic surgery for a planned left hip replacement for recent left hip fracture. Hospitalist service was consulted to assist with management of patient medical comorbidities 1. Recent left hip fracture ? S/p left hip cemented hemiarthroplasty with Dr. Bettencourt on 03/08/25. Patient postoperative orders regarding pain management DVT prophylaxis as well as PT OT as per primary service 2. Leukocytosis ? Thought to be reactive no evidence of any infection. Patient denies any cough no shortness of breath no frequency no dysuria. We will continue with monitoring 3. Anemia ? Secondary to chronic disorder as well as suspected acute blood loss anemia following surgery. Patient hemoglobin on 03/04/2025 was 30.5 was was 10.9 on 03/09/2025. Monitoring H&H and transfuse if patient becomes symptomatic or hemoglobin falls below 7 2. Hyponatremia Mild thought to be secondary to patient being on diuretic therapy we will continue with monitoring 5. Mild sinus bradycardia ? Patient heart rate remains in the mid 50s. Patient is on metoprolol we will continue home 6. Hypertension ? Blood pressure controlled, home medications continued with dose adjustment as needed 7. DVT prophylaxis ? As per orthopedic surgery Time spent in the patient's overall evaluation,decision-making process, review of diagnostic data, adjustment of management, discussion with other providers, nursing nursing and ancillary staff involved in patient's care documentation, 38 Minutes Charges/Coding Visit Charges Inpatient E&M: 28003 Subs Hosp L2
--- NOTE | 2025-03-09 07:39 | PCM.PN.ORT ---
Subjective Subjective 84-year-old female underwent left hip hemiarthroplasty cemented yesterday afternoon as a result of a femoral neck fracture that had been present for several weeks resulting from a fall. No adverse events overnight. She had difficulty sleeping not as a result of pain but because she has difficulty sleeping on her back. Pain in the left hip has been well-controlled. She currently denies chest pain shortness of breath dizziness or calf pain. Her goal would be for a discharge to fourth floor rehabilitation upon discharge from the hospital. Objective Data Objective Data Patient is alert and oriented x 3 no acute distress at rest breathing easily without respiratory distress. Inspection of left hip is with clean dry waterproof dressing intact without active drainage erythema warmth or signs of infection. Negative Valentina bilaterally without signs of DVT. Full range of motion bilateral ankles against gravity patient is able to actively plantar and dorsiflex bilateral ankles against resistance sensation intact to light touch capillary refill less than 3 seconds neurovascularly intact Vital Signs: Vital Signs Temp Pulse Resp BP Pulse Ox O2 Del Method 97.4 F L 56 L 18 111/54 L 99 Room Air 03/09/25 06:04 03/09/25 06:04 03/09/25 06:04 03/09/25 06:04 03/09/25 06:04 03/09/25 06:04 Oxygen Delivery Method Room Air Weight: 58.4 kg Body Mass Index (BMI) 22.1 Intake & Output: Intake and Output for Last 24 Hours 03/07/25 03/08/25 03/09/25 23:59 23:59 23:59 Intake Total 1506.67 / 1906.67 650 / 650 Output Total 200 / 200 Balance 1306.67 / 1706.67 650 / 650 Lab / Micro Data Attestation: I reviewed the patient's lab results. 03/09/25 05:39 03/09/25 05:39 Labs: Laboratory Results - last 24 hr 03/08/25 09:54: Blood Type A POSITIVE, Antibody Screen NEGATIVE 03/09/25 05:39: WBC 17.8 H, RBC 3.39 L, Hgb 10.9 L, Hct 31.5 L, MCV 92.9, MCH 32.2 H, MCHC 34.6, RDW Std Deviation 41.9, RDW Coeff of Murray 12.3, Plt Count 263, MPV 9.4, Immature Gran % (Auto) 0.700, Neut % (Auto) 79.8 H, Lymph % (Auto) 11.5 L, [place] % (Auto) 7.9, Eos % (Auto) 0.0, Baso % (Auto) 0.1, Absolute Neuts (auto) 14.2 H, Absolute Lymphs (auto) 2.05, Nucleated RBC % 0, Sodium 132 L, Potassium 4.6, Chloride 98, Carbon Dioxide 20.7 L, Anion Gap 13, BUN 22 H, Creatinine 0.55 L, Estim Creat Clear Calc 44.40 L, Est GFR (MDRD) Non-Af 90, BUN/Creatinine Ratio 40.3 H, Glucose 108 H, Calcium 9.1 Micro: Microbiology 03/04/25 11:38 Nasal Secretion MRSA (PCR) - Final Radiography Diagnostic Testing: Radiology Impression Hip X-Ray 03/08/25 11:25 IMPRESSION: Generalized osteopenia is present. Mild right hip joint degenerative changes are seen. A proximal left femoral bipolar endoprosthesis has been placed, also with proximal femoral cerclage wire. Overlying skin alessandra are seen. No complication is noted. No fracture site is seen. Reading Location: [facility] Above radiographs personally reviewed by myself Assessment & Plan Assessment/Plan (1) Displaced fracture of left femoral neck: PLAN: - Status post cemented left hip hemiarthroplasty postoperative day #1 -Tylenol and oxycodone as needed for pain -DVT prophylaxis bilateral teds SCDs aspirin 81 mg twice daily x 1 month postoperative (patient denies history of DVT or pulmonary embolism) -Begin PT/OT weightbearing as tolerated left lower extremity with a walker hip dislocation precautions - Drop in hemoglobin hematocrit asymptomatic without indication for transfusion likely combination of acute blood loss and hemodilution continue to monitor -Leukocytosis afebrile without acute surgical signs of infection likely a result of atelectasis versus acute stress response versus Decadron use -Encourage incentive spirometry -Discharge planning with case management probable discharge to fourth floor rehab pending insurance -Continue postoperative medical management per hospitalist
--- NOTE | 2025-03-09 07:50 | DCINST_ITS ---
Discharge Instructions DC O2, CPAP, BIPAP needs Home O2 Discharge instructions: No Dressing / Incision Discharge Activity: May Not Drive (while taking narcotic pain medications.) May shower in (days): 2 Ice area for (Minutes): 20 (every hour while awake.) Weight Bearing Status: Weight bearing as tolerated Keep extremity elevated above heart level: Operative Extremity Additional Activity Instructions:: Wear elastic stockings for 2 weeks after your surgery. Dressing / Incision Call your doctor if your incision/area has: Continuous Slow Oozing, Sudden Increased Bleeding, Increased Pain/ Swelling, Increased Redness and Foul Smelling Discharge Call your doctor if you observe: Fever of 101 or Higher, Coldness, Increased Pain, Numbness or Tingling, Change in Color, Calf discomfort and Uncontrolled pain Change Dressing in: 1 day (and daily as needed.) Follow Up Care Test Results: Test results from this visit will be discussed in further detail at your follow- up appointment, if applicable. Discharge Plan Admission Admit Date/Time: 03/08/25 08:47 Attending Provider: Charanjit Rojo Primary Care Provider: Farshad Herrera Consulting Providers: Espinoza Zavaleta; Manuel Bettencourt Discharge Orders/Prescriptions Prescriptions: New sennosides-docusate sodium [Stimulant Laxative Plus] 8.6-50 mg Tablet 2 tab PO BID Qty: 0 0RF acetaminophen 500 mg Tablet 1,000 mg PO Q8 Qty: 0 0RF aspirin 81 mg Tablet,Chewable 81 mg PO BIDCM Qty: 0 0RF oxycodone 5 mg Tablet 5 - 10 mg PO Q4H PRN PRN (Reason: Pain Score 4-10) Qty: 0 0RF Continued cholecalciferol (vitamin D3) [Vitamin D3] 1,000 UNIT tablet 1,000 unit PO DAILY metoprolol tartrate 50 MG tablet 50 mg PO BID Patient Comments: spironolactone 25 mg tablet 25 mg PO DAILY Patient Comments: [NO ORIGINAL SIG] Discontinued aspirin 81 MG tablet,chewable 81 mg PO DAILY@0800 Referrals / Follow Up: Farshad Herrera MD [Primary Care Provider] -
[2025-03-09 10:00] VITALS: BP 132/70; PULSE 67; RESP 16; TEMP 36.6; O2SAT 98
[2025-03-09 10:10] VITALS: BP 132/70; PULSE 67
[2025-03-09] MEDS: Ensure Surgery 237 ML LIQUID PO ×2 (10:10→11:24)
[2025-03-09] MEDS: Senna/Docusate Sodium 1 Tablet 2 TABLET PO (10:10)
--- NOTE | 2025-03-09 10:14 | CASEMGMT ---
NATALYA A list of home health providers including quality and resource use data and consistent with the patient's preferred geographic region, medical needs, and insurance network was created in [employer] Guide. This list was provided to the SW. JIM Avila
--- NOTE | 2025-03-09 10:25 | CASEMGMT ---
RN?CM?ASSESSMENT ? RN?CM?to room to meet with patient for initial transition planning/care coordination?assessment.?RN?CM?introduced self and role at [facility].? Pt voices understanding and consents to?assessment?at this time.? Pt sitting up in chair in room in no distress at this time.? Pt is A/O at this time and answers all questions appropriately.?? Care providers, pharmacy, and demographics verified/updated at this time. ? Strata: 1 PCP: Dr Hererra Specialists: Dr Manuel Bettencourt-ortho Preferred Pharmacy: [facility] @ [place] Insurance: [id number] Prescription Benefit:?yes LNOK: Daughter, Priya. Granddaughter, Katharine Living Arrangements: Lives alone in one-story apartment w/no steps to enter. Pt was independent w/all ADL's and IADL's prior to fall/injury about a month ago. Granddaughters have been assisting w/ADL's/IADL's since then. Transportation:?Pt was driving prior to fall/injury. Family able to assist w/transportation, but they work during the day. Pt would like to utilize [facility] once she starts going to OP therapy. She was made aware they can provide transportation to [facility]. She was also made aware she will need to be able to get in/out of van independently. She voices understanding. [facility] info provided at this time. DME: ?States has the following DME:?walk-in shower w/shower chair, over-commode raised toilet seat, toilet side rails, lift chair 1 grab bar (granddaughter getting another one put in), rollator. She also has a BSC available, but does not use. Pt states granddaughter is looking into getting a medical alert button. Info also provided to pt at this time. Pt states no need for further DME at this time.? HHC/SNF: No hx of either. ? Pt wishes to return home. Discussed therapy and recommendations. She states her granddaughter wanted her to go somewhere for rehab, but she states she wants to discharge home and feels safe doing so. Pt ambulated 180 ft w/therapy today. Discussed HHC and OP therapy. Pt states she would like HHC initially and then plans to do OP therapy after that & utilize [facility] van transportation. Pt provided w/list of [facility] agencies that was prepared by anson Harrell him assistant. Pt chose [facility] as 1st preference. Call to Dee Dee @ [facility] and referral made. Pt advised to have HHC work w/her on steps to be able to get in/out of [facility] van independently when she starts OP therapy. She voices understanding. CM?to follow for any further discharge planning/needs.? Pt voices no further concerns/needs at this time.? Advised pt to ask for?CM?if any further questions/concerns/needs arise.? Voices understanding. ? PLAN:??Home w/HHC. ? Angeline BSN?RN?CM ?
--- NOTE | 2025-03-09 11:59 | CASEMGMT ---
Addendum entered by Nanci Canales 03/09/25 12:42: Noted dc order placed. TC to Bhanu Joshi to speak with PA, received cell number and called PA. Based on therapy evluis and hospitalist, pt is medically ready for dc. TC to vikram mina, she is aware of dc this date, that SN was added to HH referral to monitor for s/s infection and healing and HHC will be out tomorrow. She states she will facilitate pt getting transported home with family and someone will be in to pick pt up today. TC to Dee Dee at [facility], made aware pt will dc today. Updated pt on plan. Addendum entered by Nanci Canales 03/09/25 12:19: Pt aware of acceptance by [facility]. Also pt is aware of the discussion had with vikram mina. Pt denies any further questions at this time. Addendum entered by Nanci Canales 03/09/25 12:15: Received tc from Dee Dee at [facility], they can accept pt and will plan for SOC day after dc. Original Note: Received tc from vikram Alcantar. She requested information regarding dc plan. She states she would like pt to go to [facility]. Discussed with her therapy evals and recommendations and [facility] for pt. Discussed the hospital van for transportation to [facility] when pt is ready for outpt therapy if transportation is a concern. Also discussed other options for therapy. Discussed that therapy would need to work on steps even though pt doesn't have any in the home as she will need to be able to get in and out of the hospital van on her own. Vikram mina is aware that pt was given information on the hospital van as well as medic alert. Vikram mina expressed concerns of pt dc'ing today as they need to set up grab bars in the home prior to pt coming home. She states tomorrow they can be with her. She expresses concerns of pt getting up at night on her own. Discussed private duty options, she states that is not something that her grandma would go for. She asks to have [facility] submit to insurance to see if she can go there s/t. Message to admissions, they do not have bed availibility at this time. Pt keeley aware and requests pt be dc'd tomorrow. TC to Bhanu Joshi, left message on clinical line regarding dc plan and request for dc tomorrow.
[2025-03-09 14:19] VITALS: BP 104/58; PULSE 65; RESP 16; TEMP 36.4; O2SAT 98
== END 2025-03-09 18:07 | disposition home health service (06) | DRG 522 ==
PROVIDERS: Anesthesiology; Admitting Provider Orthopaedic Surgery; PCP Family Medicine; Referring Provider Orthopaedic Surgery; Visit Provider Internal Medicine
PROC: 0SRS0J9 Replacement of Left Hip Joint, Femoral Surface with Synthetic Substitute, Cemented, Open Approach (ICD-10-PCS; CPT 27125; principal; 2025-03-08 10:40)
DX: S72.002A Fracture of unspecified part of neck of left femur, initial encounter for closed fracture (principal); E87.1 Hypo-osmolality and hyponatremia; I10 Essential (primary) hypertension; D50.0 Iron deficiency anemia secondary to blood loss (chronic); W19.XXXA Unspecified fall, initial encounter; Z79.899 Other long term (current) drug therapy
CPT/HCPCS: 36415; 71046; 73502; 80048; 82040; 83735; 85025; 86850; 86900; 86901; 87641; 93005; 94668; 97162; 97166; C1776; A4216; J2405